=== PATIENT | female | born 1985 | race Caucasian/White ===

== ENCOUNTER → 2018-02-15 12:23 | Outpatient (CLI) | payer MEDICAID, SELFPAY ==
[2018-02-15 13:15] LABS: Absolute Lymphocyte Count 1.95 X10^3/ul (0.83-4.51); Absolute Neutrophil Count 5.7 X10^3/uL (2.0-7.7); Basophil# 0.03 X10^3/uL; Basophil% 0.4 % (0-1); Eosinophil# 0.06 X10^3/uL; Eosinophils% 0.7 % (0-5); Hematocrit 36.7 % (37-47); Hemoglobin 12.2 g/dl (12.0-15.0); Lymphocyte # 1.95 X10^3/ul (4.0); Lymphocyte % 23.8 % (19-41); Mean Corp Hgb Conc 33.2 g/gl (32-36); Mean Corpuscular Hgb 28.7 pg (27.0-32.0); Mean Corpuscular Volume 86.4 fL (81-99); Monocyte# 0.44 X10^3/uL; Monocyte% 5.4 % (0-10); Neutrophil # 5.68 X10^3/uL (2.7-7.7); Neutrophil % 69.5 % (47-70); Platelet Count 219 K/mm3 (150-450); RBC Distribution Width CV 13.2 % (11.6-14.6); RBC Distribution Width SD 40.9 fl (35.1-43.9); Red Blood Count 4.25 M/mm3 (4.2-5.4); White Blood Count 8.2 K/mm3 (4.4-11.0)
[2018-02-15 13:21] LABS: POSITIVE COUNT NO; POSITIVE DIFFERENTIAL NO; POSITIVE MORPHOLOGY NO
[2018-02-16 10:23] LABS: HEPATITIS B SURFACE AG Negative (Negative)
[2018-02-16 11:25] LABS: HIV - WCH Non-Reactive (Nonreactive); Rubella IgG 107.6 IU/mL
[2018-02-18 01:20] LABS: Rapid Plasmin Reagin (RPR) NONREACTIVE (NONREACTIVE)
== END ==
PROVIDERS: Visit Provider Nurse Practitioner Women's Health
DX: Z34.90 Encounter for supervision of normal pregnancy, unspecified, unspecified trimester (principal)
CPT/HCPCS: 36415; 85025; 86592; 86703; 86762; 86850; 86900; 87340

== ENCOUNTER → 2018-02-15 16:51 | Outpatient (CLI) | payer MEDICAID, SELFPAY ==
[2018-02-15 20:21] LABS: Chlamydia Trachomatis by PCR Negative (Negative); Neisserai gonorrhoeae by PCR Negative (Negative); Probe Check PASS; Sample Adequacy Control PASS; Specimen Processing Control PASS
[2018-02-24 10:05] LABS: HPV APTIMA, High Risk Positive (Negative)
== END ==
PROVIDERS: Visit Provider Nurse Practitioner Women's Health
DX: Z34.90 Encounter for supervision of normal pregnancy, unspecified, unspecified trimester (principal); Z12.4 Encounter for screening for malignant neoplasm of cervix
CPT/HCPCS: 36415; 85025; 86592; 86703; 86762; 86850; 86900; 87086; 87088; 87340; 87491; 87591; 88175; G0145

== ENCOUNTER → 2018-02-22 12:14 | Outpatient (CLI) | payer MEDICAID, SELFPAY ==
--- NOTE | 2018-02-22 12:16 | US_ITS ---
STUDY: FIRST TRIMESTER OBSTETRICAL ULTRASOUND REASON FOR EXAM: Female, 32 years old. dating. LMP: December 22, 2017. TECHNIQUE: Transabdominal and Transvaginal PRIOR ULTRASOUND: None. FINDINGS: There is visualization of a single gestational sac in a normal intrauterine position. There is a visualized yolk sac. The yolk sac measures 5 mm.. The placenta is non-visualized. There is visualization of a live embryo. The crown-rump length (CRL) measures 1.79 cm, indicating an estimated gestational age (EGA) of 8 weeks, 2 days. There is demonstrated cardiac activity with a heart rate of 146 bpm. The estimated gestation age (EGA) by LMP is 8 weeks, 6 days. The estimated date of delivery (ZULY) by LMP is September 28, 2018. The estimated gestation age (EGA) by US is 8 weeks, 2 days. The estimated date of delivery (ZULY) by US is October 02, 2018. The uterus measures 13.9 cm x 8.0 cm x 6.4 cm.. There is no demonstrated uterine fibroid. The cervix is closed. There is a 9 mm x 8 mm x 4 mm subchorionic bleed. The right ovary measures 4.2 cm x 4.6 cm x 2.4 cm. There is no right ovarian cyst. There is no visualized right adnexal mass or complex lesion. The left ovary measures 4.0 cm x 3.5 cm x 2.0 cm. There is no left ovarian cyst. There is no visualized left adnexal mass or complex lesion. There is no fluid in the cul de sac. US/Init OB < 14Wks US IMPRESSION: Single live intrauterine gestation with a mean gestational age of 8 weeks and 2 days. Subcentimeter subchorionic bleed. Electronically Signed: Kishore Hayes MD at 14:43 EDT Tel [phone], Service support ,
== END ==
PROVIDERS: Visit Provider Nurse Practitioner Women's Health
DX: Z34.90 Encounter for supervision of normal pregnancy, unspecified, unspecified trimester (principal); Z98.891 History of uterine scar from previous surgery
CPT/HCPCS: 76801

== ENCOUNTER → 2018-05-12 13:01 | Outpatient (CLI) | payer MEDICAID, SELFPAY ==
--- NOTE | 2018-05-12 13:05 | US_ITS ---
STUDY: SECOND AND THIRD TRIMESTER OBSTETRICAL ULTRASOUND REASON FOR EXAM: Female, 33 years old. Anatomy LMP: TECHNIQUE: Transabdominal and Transvaginal PRIOR ULTRASOUND: February 22, 2018 FINDINGS: There is a single intrauterine fetus. The fetus is in a cephalic presentation. There is demonstrated cardiac activity with a heart rate of 142 bpm. There is a normal amniotic fluid volume. The largest amniotic fluid pocket measures 6.2 cm. The placenta is posterior in location and is not low lying. There are Grade 0 placental changes. The cervix measures 40 mm in length. The bilateral adnexal regions are normal. BIOMETRY: BPD: 45mm: 19 weeks, 5 days HC: 171mm: 19 weeks, 6 days AC: 162mm: 21 weeks, 2 days FL: 32mm: 20 weeks, 1 days CI: 73 FL/BPD: 72 FL/AC: 20 HC/AC: 1.06 age by current US: 20 weeks, 2 days. ZULY by current US: 1.1.19. Estimated weight: 363 grams, +/- 53 grams, 93 %. age by prior US: 19 weeks, 4 days. ZULY by prior US: 1.6.19. Age by LMP: 19 weeks, 4 days. ZULY by LMP: 1.6.19. ANATOMY: Gender: Male Cranium: Normal lateral ventricles. Normal choroid plexus. Normal cerebellum. Normal cisterna magna. The face, nose and lips are not visualized. Chest: Normal 4-chamber heart. Abdomen/Pelvis: Normal diaphragm. Normal stomach. Normal abdominal wall. Normal cord insertion. Normal 3 vessel cord. Normal kidneys. Normal bladder. Spine: Normal cervical spine. Normal thoracic spine. Normal lumbar spine. Normal sacrum. Extremities: Normal bilateral upper extremities. Normal bilateral lower extremities. US/OB Anatomy Scan IMPRESSION: There is a single live intrauterine with a heart rate of 142 bpm. age by current US: 20 weeks, 2 days. ZULY by current US: 1.1.19. The face, nose and lips are not visualized. Electronically Signed: Antonio Min MD at 22:45 EDT , Service support ,
== END ==
PROVIDERS: Visit Provider Obstetrics & Gynecology
DX: Z34.90 Encounter for supervision of normal pregnancy, unspecified, unspecified trimester (principal)
CPT/HCPCS: 76805

== ENCOUNTER → 2018-07-13 11:32 | Outpatient (CLI) | payer MEDICAID, SELFPAY ==
[2018-07-13 12:19] LABS: Absolute Lymphocyte Count 1.41 X10^3/ul (0.83-4.51); Absolute Neutrophil Count 5.8 X10^3/uL (2.0-7.7); Basophil# 0.01 X10^3/uL; Basophil% 0.1 % (0-1); Eosinophil# 0.05 X10^3/uL; Eosinophils% 0.7 % (0-5); Hematocrit 32.8 % (37-47); Hemoglobin 10.7 g/dl (12.0-15.0); Lymphocyte # 1.41 X10^3/ul (4.0); Lymphocyte % 18.5 % (19-41); Mean Corp Hgb Conc 32.6 g/gl (32-36); Mean Corpuscular Hgb 29.6 pg (27.0-32.0); Mean Corpuscular Volume 90.9 fL (81-99); Mean Platelet Vol. 9.9 fl (6.2-12.0); Monocyte# 0.31 X10^3/uL; Monocyte% 4.1 % (0-10); Neutrophil % 76.1 % (47-70); Platelet Count 200 K/mm3 (150-450); RBC Distribution Width CV 12.9 % (11.6-14.6); RBC Distribution Width SD 41.4 fl (35.1-43.9); Red Blood Count 3.61 M/mm3 (4.2-5.4); White Blood Count 7.6 K/mm3 (4.4-11.0)
[2018-07-13 12:23] LABS: POSITIVE COUNT NO; POSITIVE DIFFERENTIAL NO; POSITIVE MORPHOLOGY NO
[2018-07-13 12:49] LABS: Glucose Challenge Gest 1H 50g 144 mg/dL (70-140)
== END ==
PROVIDERS: Referring Provider Obstetrics & Gynecology; Visit Provider Obstetrics & Gynecology
DX: O09.899 Supervision of other high risk pregnancies, unspecified trimester (principal); O09.91 Supervision of high risk pregnancy, unspecified, first trimester; Z67.91 Unspecified blood type, Rh negative
CPT/HCPCS: 36415; 82950; 85025; 86850; 86900

== ENCOUNTER → 2018-07-19 09:59 | Outpatient (CLI) | payer MEDICAID, SELFPAY ==
[2018-07-19 10:51] LABS: Glucose GTT-Gestation. Fasting 83 mg/dL (<105)
[2018-07-19 11:41] LABS: Glucose GTT-Gestational 1 Hr 141 mg/dL (<190)
[2018-07-19 12:55] LABS: Glucose GTT-Gestational 2 Hr 95 mg/dL (<165)
[2018-07-19 14:22] LABS: Glucose GTT-Gestational 3 Hr 85 L (<145)
== END ==
PROVIDERS: Referring Provider Nurse Practitioner Women's Health; Visit Provider Nurse Practitioner Women's Health
DX: O99.810 Abnormal glucose complicating pregnancy (principal); Z3A.00 Weeks of gestation of pregnancy not specified
CPT/HCPCS: 36415; 82951; 82952

== ENCOUNTER → 2018-09-06 12:10 | Outpatient (CLI) | payer MEDICAID, SELFPAY ==
[2018-09-06 11:23] VITALS: BMI 36.3
[2018-09-06 13:02] LABS: Absolute Lymphocyte Count 1.37 X10^3/ul (0.83-4.51); Absolute Neutrophil Count 4.4 X10^3/uL (2.0-7.7); Basophil# 0.02 X10^3/uL; Basophil% 0.3 % (0-1); Eosinophil# 0.08 X10^3/uL; Eosinophils% 1.3 % (0-5); Hematocrit 30.5 % (37-47); Lymphocyte # 1.37 X10^3/ul (4.0); Lymphocyte % 21.7 % (19-41); Mean Corp Hgb Conc 32.8 g/gl (32-36); Mean Corpuscular Hgb 28.9 pg (27.0-32.0); Mean Corpuscular Volume 88.2 fL (81-99); Mean Platelet Vol. 9.9 fl (6.2-12.0); Monocyte# 0.45 X10^3/uL; Monocyte% 7.1 % (0-10); Neutrophil # 4.35 X10^3/uL (2.7-7.7); Neutrophil % 69.1 % (47-70); Platelet Count 186 K/mm3 (150-450); RBC Distribution Width CV 13.7 % (11.6-14.6); RBC Distribution Width SD 41.5 fl (35.1-43.9); Red Blood Count 3.46 M/mm3 (4.2-5.4); White Blood Count 6.3 K/mm3 (4.4-11.0)
[2018-09-06 13:05] LABS: POSITIVE COUNT NO; POSITIVE DIFFERENTIAL NO; POSITIVE MORPHOLOGY NO
--- OUTSIDE RECORDS SUMMARY | 2018-10-23 14:20 | XMS RPT_ITS ---
:1985 Author Organization OHIP Support Name Relationship Address Phone KELTON PEARSON Unavailable [address] + [address] [place] [address] UE Unavailable Unavailable Unavailable PEARSON, KELTON Unavailable [address] + [address] [place] [address] UE Unavailable Unavailable Unavailable PEARSON, KELTON Unavailable [address] + [address] [place] [address] UE Unavailable Unavailable Unavailable PEARSON, KELTON Unavailable [address] + [address] [place] [address] UE Unavailable Unavailable Unavailable PEARSON, KELTON Unavailable [address] + [address] [place] [address] UE Unavailable Unavailable Unavailable PEARSON, KELTON Unavailable [address] + [address] [place] [address] UE Unavailable Unavailable Unavailable PEARSON, KELTON Unavailable [address] + [address] [place] [address] UE Unavailable Unavailable Unavailable PEARSON, KELTON Unavailable [address] + [address] [place] [address] UE Unavailable Unavailable Unavailable PEARSON, KELTON Unavailable [address] + [address] [place] [address] UE Unavailable Unavailable Unavailable PEARSON, KELTON Unavailable [address] + [address] [facility] [place] [address] UE Unavailable Unavailable Unavailable PEARSON, KELTON Unavailable [address] + [address] [place] [address] UE Unavailable Unavailable Unavailable PEARSON, KELTON Unavailable [address] + [address] [place] [address] UE Unavailable Unavailable Unavailable PEARSON KELTON Unavailable [address] + [address] [place] [address] UE Unavailable Unavailable Unavailable PEARSON KELTON Unavailable [address] + [address] [place] [address] UE Unavailable Unavailable Unavailable PEARSON KELTON Unavailable [address] + [address] [place] [address] UE Unavailable Unavailable Unavailable PEARSON KELTON Unavailable [address] + [address] [place] [address] UE Unavailable Unavailable Unavailable NOT GIVEN Unavailable Unavailable Unavailable HERMAN MEJIA Unavailable [address] + [address] [place], [place] [id number] HERMAN MEJIA Unavailable [address] [place], [place] [id number] PEARSON KELTON Unavailable [address] + [address] [place] [address] UE Unavailable Unavailable Unavailable PEARSON KELTON Unavailable [address] + [address] [place] [address] UE Unavailable Unavailable Unavailable PEARSON KELTON Unavailable [address] + [address] [place] [address] UE Unavailable Unavailable Unavailable PEARSON KELTON Unavailable [address] + [address] [place] [address] UE Unavailable Unavailable Unavailable PEARSON KELTON Unavailable [address] + [address] [place] [address] UE Unavailable Unavailable Unavailable . Unavailable Unavailable + [place] [address] PEARSON KELTON Unavailable . + [place] [address] Care Team Providers Name Role Phone DEEPAK, DR ALICE France Admitting Unavailable DEEPAK, DR ALICE France Attending Unavailable DEEPAK, DR ALICE France Primary Care Unavailable MYA KAPADIA MD Referring Unavailable MYA KAPADIA MD Consulting Unavailable PROVIDER, UNKNOWN Consulting Unavailable Mya Kapadia Attending Unavailable Primay Care Physicia, No Referring Unavailable Mya Kapadia Attending Unavailable Mya Kapadia Referring Unavailable Primay Care Physicia, No Primary Care Unavailable Marcanthony, Mya Attending Unavailable Marcanthony, Mya Referring Unavailable Primay Care Physicia, No Primary Care Unavailable Marcanthony, Mya Admitting Unavailable Marcanthony, Mya Attending Unavailable Marcanthony, Mya Referring Unavailable Primay Care Physicia, No Primary Care Unavailable Drew, Patsy Attending Unavailable Drew, Patsy Attending Unavailable Drew, Patsy Referring Unavailable Primay Care Physicia, No Primary Care Unavailable Drew, Patsy Attending Unavailable Primay Care Physicia, No Primary Care Unavailable Drew, Patsy Referring Unavailable Marcanthony, Mya Attending Unavailable Primay Care Physicia, No Referring Unavailable Marcanthony, Mya Attending Unavailable Primay Care Physicia, No Referring Unavailable Marcanthony, Mya Admitting Unavailable Marcanthony, Mya Attending Unavailable Marcanthony, Mya Referring Unavailable Primay Care Physicia, No Primary Care Unavailable Marcanthony, Mya Consulting Unavailable Marcanthony, Mya Admitting Unavailable Marcanthony, Mya Attending Unavailable Marcanthony, Mya Referring Unavailable Primay Care Physicia, No Primary Care Unavailable Marcanthony, Mya Consulting Unavailable Marcanthony, Mya Admitting Unavailable Drew, Patsy Attending Unavailable Marcanthony, Mya Referring Unavailable Primay Care Physicia, No Primary Care Unavailable Marcanthony, Mya Consulting Unavailable Drew, Patsy Attending Unavailable [place], Patsy Referring Unavailable Primay Care Physicia, No Primary Care Unavailable Drew, Patsy Attending Unavailable Primay Care Physicia, No Referring Unavailable Primay Care Physicia, No Attending Unavailable Marcanthony, Mya Attending Unavailable Primay Care Physicia, No Referring Unavailable Marcanthony, Mya Attending Unavailable Marcanthony, Mya Attending Unavailable Primay Care Physicia, No Primary Care Unavailable Marcanthony, Mya Attending Unavailable Primay Care Physicia, No Referring Unavailable Marcanthony, Mya Attending Unavailable Marcanthony, Mya Referring Unavailable Primay Care Physicia, No Primary Care Unavailable [place], Patsy Attending Unavailable Drew, Patsy Referring Unavailable Primay Care Physicia, No Primary Care Unavailable Drew, Patsy Attending Unavailable Primay Care Physicia, No Referring Unavailable PROBLEMS PROBLEMS DATE TYPE CONDITION / CODE ATTENDING STATUS SOURCE 09/28/2018 Unknown G89.18 - Other acute Marcanthony, Active [place] postprocedural pain [facility] / 89.18(ICD-10) Hospital Repository 09/22/2018 Unknown O09.899 - Marcanthony, Active [place] Supervision of other [facility] high risk Hospital pregnancies, Repository unspecified trimester / O09.899(ICD-10) 09/22/2018 Unknown Z67.91 - Unspecified Marcanthony, Active [place] blood type, Rh [facility] negative / Hospital Z67.91(ICD-10) Repository 09/22/2018 Unknown Z87.51 - Personal Marcanthony, Active [place] history of pre-term [facility] labor / Hospital Z87.51(ICD-10) Repository 09/22/2018 Unknown Z98.891 - History of Marcanthony, Active [place] uterine scar from [facility] previous surgery / Hospital Z98.891(ICD-10) Repository 09/22/2018 Unknown R87.610 - Atypical Marcanthony, Active [place] squamous cells of [facility] undetermined Hospital significance on Repository cytologic smear of cervix (ASC-US) / R87.610(ICD-10) 09/22/2018 Unknown R87.810 - Cervical Marcanthony, Active [place] high risk human [facility] papillomavirus (HPV) Hospital DNA test positive / Repository R87.810(ICD-10) 09/22/2018 Unknown O09.91 - Supervision Marcanthony, Active [place] of high risk [facility] , Hospital unspecified, first Repository trimester / O09.91(ICD-10) 09/22/2018 Unknown O99.012 - Anemia Marcanthony, Active [place] complicating [facility] , second Hospital trimester / Repository O99.012(ICD-10) 09/22/2018 Unknown O99.810 - Abnormal Marcanthony, Active [place] glucose complicating [facility] / Hospital O99.810(ICD-10) Repository 09/22/2018 Unknown Z36.9 - Encounter Marcanthony, Active [place] for [facility] screening, Hospital unspecified / Repository Z36.9(ICD-10) 09/06/2018 Unknown Z34.90 - Encounter Marcanthony, Active [place] for supervision of [facility] normal , Hospital unspecified, Repository unspecified trimester / Z34.90(ICD-10) 09/06/2018 Unknown O36.5990 - Maternal Marcsascha, Active [place] care for other known [facility] or suspected poor Hospital growth, Repository unspecified trimester, not applicable or unspecified / O36.5990(ICD-10) 07/27/2018 Unknown Z3A.30 - 30 weeks DrewPatsy murry Active [place] gestation of [facility] / Hospital Z3A.30(ICD-10) Repository 07/13/2018 Unknown Z23 - Encounter for Rika, Active [place] immunization / [facility] Z23(ICD-10) Hospital Repository 03/25/2018 Unknown Z3A.12 - 12 weeks Drew, Patsy Active [place] gestation of [facility] / Hospital Z3A.12(ICD-10) Repository 03/25/2018 Unknown O21.9 - Vomiting of Drew, Patsy Active [place] , Community unspecified / Hospital O21.9(ICD-10) Repository 02/16/2018 Unknown Z12.4 - Encounter DrewPatsy Active [place] for screening for [facility] malignant neoplasm Hospital of cervix / Repository Z12.4(ICD-10) PROCEDURES PROCEDURES No Procedure Records FoundRESULTS RESULTS OPERATIVE REPORT Observed: 10/05/2018 Status: F Source: [place] 5:08 AM [facility] REPOSITORY [facility] Medical Records Department [address] [place] [address] Operative Report 09/26/18921 MR#: [id number] Acct: [id number] Name: ANKIT MEJIA Rep #: [id number] : 1985 33 From: Mya Kapadia MD PCP: Care Physician, No Primary Status: DIS IN Y Location: [id number] ADDENDUM by Mya Kapadia MD on 10/05/18 at 0508 Code Visit bilateral tubal ligationw as performed via the parkland method- mid interstitial portion of the tube was elevated and the tube transected tying proximally and distally and removing the communicating portion without ocmplications. 10/05/18 0508 <Electronically signed by Mya Kapadia MD> Date Mya Kapadia MD cc: No Primary Care Physician; Mya Kapadai MD * Signed Problem List (1) Anemia during in second trimester Status: Acute Comment: iron, check cbc monthly (2) Abnormal glucose affecting Status: Acute Comment: 3 hr GTT normal (3) Atypical squamous cell changes of undetermined significance (ASCUS) on cervical cytology with positive high risk human papilloma virus (HPV) Status: Acute Comment: pap PP (4) History of labor Status: Acute Comment: Progesterone injections in . (5) Supervision of high risk in first trimester Status: Acute Comment: PRR Grav 6/ ZULY 10/02/18. PC: Obey Todd Zofia, Vincent, Karolina. FOB: [place]. (is , getting ) Repeat US FU in 4 weeks due to body habitus. (6) screening encounter Status: Acute Comment: Referral to [facility] for NT (7) Rh negative state in antepartum period Status: Acute Comment: rhogam given at 28 weeks (8) History of Status: Acute Comment: Plans repeat CS with BTO 09/26/18 Report of Operation Date of Procedure: 09/26/18 Pre-Operative Diagnosis: previuos Post-Operative Diagnosis: same Surgery/Procedure Performed:: RLTCS BTL Description of Surgical Findings:: moderate scar tissue vesicouterine director private music therapy agency: Lorie Hartman Type of Anesthesia:: Spinal Special Medications: none Specimen's removed: male infant Drains: cuevas Estimated Blood Loss (mL): 600 Fluids Replaced: crystalloid Description of Procedure: The patient is a with 4 previous cesareans presented for repeat . Spinal anesthesia was placed without difficulty. Cuevas catheter was placed. The patient was placed in the dorsal supine position with leftward tilt. Patient was prepped and draped in the normal sterile fashion. Pfannenstiel skin incision was made with the scalpel and carried through to the underlying layer of fascia with the scalpel. Fascia was nicked in the midline and the incision extended laterally. The rectus bellies were dissected off superiorly and inferiorly with out complication both sharply and bluntly. The peritoneum was entered digitally. The incision was stretched and a low transverse uterine incision was made with the scalpel. The 's head was delivered atraumatically followed by the anterior and posterior shoulders without complication the rest of the delivered. The cord was clamped and cut and the was handed off to awaiting nurse. The placenta was delivered spontaneously immediately following and was noted to be intact and have a three-vessel cord. The uterus was exteriorized cleared of all clots and debris, and the incision was closed in a double layer closure using #1 Monocryl. The uterus was returned to the maternal abdomen and gutters were cleared of all clots and debris. The ovaries and fallopian tubes were noted to be within normal limits. The peritoneum was closed with 3-0 Monocryl in a running fashion. Fascia was closed with 0 PDS in a running fashion. Subcutaneous tissue was copiously irrigated and the skin was closed with 3-0 Monocryl in a subcuticular fashion. Steri-Strips and Mepilex dressing were applied without complication. Patient was taken to recovery in stable condition. Grafts/Implants Used: none - Complications none - Admit VTE Documentation VTE Present on Admission: No VTE Mechan Device Prophylaxis: SCD's 09/26/18 1142 <Electronically signed by Mya Kapadia MD> Date Mya Kapadia MD CC: No Primary Care Physician; Mya Kapadia MD Signed DISCHARGE INSTRUCTION Observed: 09/28/2018 Status: F Source: [place] 8:05 AM [facility] REPOSITORY [facility] Medical Records Department [address] [place] [address] Instructions for Home/Discharge Instructions 09/28/18 0804 MR#: [id number] Acct: [id number] Name: ANKIT MEJIA Rep #: [id number] : 1985 33 From: Patsy VIDAL PCP: Care Physician, No Primary Status: ADM IN Additional Instructions: If you experience any of the following, contact your healthcare provider. * Bleeding that soaks a pad every hour for 2 hours * Fever 100.4 or higher * Unrelieved incision or abdominal pain * Swelling, redness, discharge or bleeding from your incision or episiotomy site * Your incision begins to separate * Problems urinating (including inability to urinate or burning while urinating). * Visual changes * Severe headache * Flu-like symptoms * Pain or redness in one of both of your breasts * Pain, warmth, tenderness or swelling in your legs, especially the calf area * Frequent nausea and vomiting * Symptoms of depression or anxiety If you experience any of the following, call 911 or go to the nearest Emergency Room. * Chest pain * Problems breathing * Seizure activity * Partial or complete paralysis of a body part, slurred speech, weakness or drooping of the face, or a sudden inability to walk or hold your balance Allergies/Adverse Reactions: Allergies No Known Allergies Allergy (Verified 09/26/18 07:40) Medications to take at Discharge Ferrous Sulfate 325 mg PO QDAY 09/22/18 [id number] fum 28 mg iron-folate no.6 1 mg-dha 300 mg capsule 1 cap PO .daily 09/22/18 Naproxen [Naprosyn] 500 mg PO BID PRN PRN #60 tablet 09/28/18 Oxycodone HCl/Acetaminophen [Percocet 5/325] 1 - 2 tablet PO Q4H PRN PRN 3 Days #15 tablet 09/28/18 The following prescriptions were given: Oxycodone HCl/Acetaminophen [Percocet 5/325] 1 - 2 tablet PO Q4H PRN PRN 3 Days #15 tablet PRN Reason: Pain Naproxen [Naprosyn] 500 mg PO BID PRN PRN #60 tablet PRN Reason: Pain Follow-Up: Call to make an appointment with your doctor for an incision check in 1-2 weeks. You will also need a 6 week post- follow up appointment. Test results from this visit will be discussed in further detail at your follow-up appointment, if applicable. Primary Care Physician: Care Physician,No Primary [Primary Care Provider] - 09/28/18804 <Electronically signed by Patsy VIDAL> Date Patsy VIDAL CC: No Primary Care Physician Signed CBC-COMPLETE BLOOD CNT Collected: 09/27/2018 Status: F Source: [place] NO DIFF 7:45 AM [facility] REPOSIT[facility] Order Comment: Comments: Day #1 Reason for Laboratory Test TYPE CODE TESTS RESULT OUT OF RANGE REFERENCE UNITS LAB L100.1000 4.4-11.0 K/mm3 Normal WBC 6.5 LAB L100.1200 4.2-5.4 M/mm3 Low RBC 3.15 LAB L100.1300 12.0-15.0 g/dl Low HGB 8.7 LAB L100.1400 37-47 % Low HCT 27.3 LAB L100.1500 81-99 fL Normal MCV 86.7 LAB L100.1600 27.0-32.0 pg Normal MCH 27.6 LAB L100.1700 32-36 g/gl Low MCHC 31.9 LAB L100.1810 11.6-14.6 % Normal RDW CV 14.0 LAB L100.1820 35.1-43.9 fl Normal RDW SD 43.5 LAB L100.1900 150-450 K/mm3 Normal PLT 178 LAB L100.2000 6.2-12.0 fl Normal MPV 9.2 Performed By: #### L100.0500 #### [facility] [address] [facility] [place], [address] HISTORY AND PHYSICAL Observed: 09/26/2018 Status: F Source: [place] EXAM 9:21 AM [facility] REPOSITORY [facility] Medical Records Department [address] [place] [address] History and Physical 09/26/18 0918 MR#: [id number] Acct: [id number] Name: ANKIT MEJIA Khushi Rep #: [id number] : 1985 33 From: Mya Kapadia MD PCP: Care Physician, No Primary Status: ADM IN Y Location: [id number] - Problem List (1) Anemia during in second trimester Status: Acute Comment: iron, check cbc monthly (2) Abnormal glucose affecting Status: Acute Comment: 3 hr GTT normal (3) Atypical squamous cell changes of undetermined significance (ASCUS) on cervical cytology with positive high risk human papilloma virus (HPV) Status: Acute Comment: pap PP (4) History of labor Status: Acute Comment: Progesterone injections in . (5) Supervision of high risk in first trimester Status: Acute Comment: PRR Grav 6/5 ZULY 10/02/18. PC: Obey Todd, Yari, Tsering Nelson. FOB: [place]. (is , getting ) Repeat US FU in 4 weeks due to body habitus. (6) screening encounter Status: Acute Comment: Referral to [facility] for NT (7) Rh negative state in antepartum period Status: Acute Comment: rhogam given at 28 weeks (8) History of Status: Acute Comment: Plans repeat CS with BTO 09/26/18 History Date of Admission: 09/26/18 Final ZULY: 10/02/18 Gestational age: 39 Weeks and 1 Days History of this : This is a 33 year-old, at 39 weeks gestational age for repeat c section and BTL. Surgical History: Surgical History (Last Reviewed 09/22/18 @ 13:45 by Екатерина Barroso) S/P Z98.891 x4 S/P cholecystectomy Z90.49 Allergies No Known Allergies Allergy (Verified 09/26/18 07:40) Home Medications: Home Medications Ferrous Sulfate 325 mg PO QDAY 09/22/18 [id number] fum 28 mg iron-folate no.6 1 mg-dha 300 mg capsule 1 cap PO .daily 09/22/18 Smoking Status: Never smoker Alcohol: None Number of Fetus(es): 1 Heart Tracin History Past Pregnancies: Past PregnanciesPregancy History 6 Elective abortions Hx Para 5 Spontaneous abortions Past Pregnancies Del. DateName GA/Weeks Outcome Route Bth WeighInfant GeLabor LgtAnesthesiDel LocatProvider FOB t n h a n Labs: Mom's Labs AND Results WBC 8.0 RBC 3.92 L Course Did the patient receive Yes care? Labs Blood Type: O Current Obstetrical History Gestational Diabetes No Incompetent Cervix No Infertility No IUGR No Macrosomia No Hypertension/Pre-eclampsia No Placenta Previa/Abruption No PTL/PROM No Uterine anomaly No Oligohydramnios No Polyhydramnios No Multiple gestation No Past Medical History Asthma No Diabetes No Hypertension No Heart disease No Mitral valve prolapse No Neurologic/Seizure disorder/ No Migraines Kidney disease No Liver disease No Varicosities No Clotting disorders/Hx of DVT No Thyroid Dysfunction No Other medical diseases No Psychiatric disorders No Major trauma No Abnormal PAP smear No Sleep apnea No Mammogram in the last 2 years No Social History Marital Status: Alleged father [place] pearson Hx Smoking No Smoking Status Never smoker Expected Delivery Method: Scheduled Section, Repeat Section Describe any other labor AND delivery plans:: btl Review of Systems Constitutional: Denies: Fever, Malaise Eyes: Denies: Blurred vision, Vision Change HEENT: Denies: Head Aches, Visual Changes Cardiovascular: Denies: Chest Pain, Palpitations Respiratory: Denies: Cough, Shortness of Breath, Wheezing Gastrointestinal: Denies: Abdominal Pain, Diarrhea, Nausea, Vomiting Genitourinary: Denies: Dysuria, Hematuria Musculoskeletal: Denies: Joint Pain, Muscle pain Skin: Denies: Lesions, Rash Neurological: Denies: Blurred vision, Focal weakness, Headaches Psychiatric: Denies: Anxiety, Depression Endocrine: Denies: Heat/ Cold Intolerance Hematologic/ Lymphatic: Denies: Easy Bruising, Easy Bleeding Physical Exam Vitals: Vital Signs Temp Pulse Resp BP Pulse Ox 97.0 F L 87 16 117/75 97 09/26/18 08:50 09/26/18 09:08 09/26/18 09:08 09/26/18 09:08 09/26/18 09:08 General: Alert, Cooperative, No apparent distress HEENT: Atraumatic, Normocephalic. Negative for: Thyromegaly, Lymphadenopathy Cardiovascular: Regular rate Lungs: Normal air movement Abdomen: Soft, Non Tender, Gravid Neurological: Deep Tendon Reflexes 2+/4 and Symmetrical, Neuro grossly intact. Negative for: Clonus [employer]: Normal external genitalia. Negative for: Vulvar lesions Estimated gestational size: Appropriate for gestational size Presentation: Cephalic Assessment/Plan All Active Problems (Last Reviewed 09/22/18 @ 13:45 by Екатерина Barroso) Anemia during in second trimester (Acute) Abnormal glucose affecting (Acute) Atypical squamous cell changes of undetermined significance (ASCUS) on cervical cytology with positive high risk human papilloma virus (HPV) (Acute) History of labor (Acute) Supervision of high risk in first trimester (Acute) screening encounter (Acute) Rh negative state in antepartum period (Acute) History of (Acute) This is a 33 year-old, at 39 weeks gestational age. plant RLTCS and BTL rhogam PRN 09/26/18 0921 <Electronically signed by Mya Kapadia MD> Date Mya Kapadia MD Cosigner Signature: Date (if applicable) CC: No Primary Care Physician; Mya Kapadia MD Signed FALLOPIAN TUBES/STERILIZATION Observed: 09/26/2018 Status: F Source: [place] 7:54 AM [facility] REPOSIT[facility] Patient: ANKIT MEJIA : 1985 (33/F) Acct Num: [id number] Phys: Mya Kapadia MD Unit Num: [id number] Loc: WP [id number] Specimen: [id number] Received: 09/26/18 - 1008 Spec Type: FALL TUBES TISSUES 1 TISSUES: Fallopian tube GROSS DESCRIPTION Received is one container labeled with the patient's name and designated bilateral fallopian tubes, left with suture. The specimen consists of two fallopian tubes with an average length of 3.5 cm and has an average diameter of 0.6 cm. Both fallopian tubes have normal fimbriated ends. No mass lesions are identified. The fallopian tubes are totally submitted in two cassettes as follows: 1 - right fallopian tube, 2 - left fallopian tube. / AM:ida 09/26/18 TC:4 CPT: 40977 x2 HEADER OPERATION: Tubal ligation PRE-OP DIAGNOSIS: Desired sterilization TISSUE SUBMITTED: Fallopian tube, stitch in left tube MICROSCOPIC DESCRIPTION Slides are reviewed. MICROSCOPIC DIAGNOSIS Right and left fallopian tubes, bilateral salpingectomies: Two complete segments of fallopian tubes with no pathologic change. AM:ida 09/28/18 Signed Abdoul Bundy, 09/29/18 <signature on file> Performed By: #### PFALS #### [facility] [address] [place], [place], [address] PATHOLOGY SPECIMEN OB Collected: 09/26/2018 Status: F Source: [place] 7:54 AM [facility] REPOSIT[facility] Order Comment: Comments: STITCH IN LEFT TUBE Send Specimen For (Specify): Studies @ [facility] Lab:Routine Time of Procedure: 753 Date of Procedure: 09/26/18 Reason specimen being sent to pathology (Hx/complications): STUDIES @ [facility] LAB Type of specimen: Fallopian Tube Type of procedure performed: Tubal Ligation TYPE CODE TESTS RESULT OUT OF RANGE REFERENCE UNITS LAB L350.1800 SEE Normal PATH. PATHOLOGY Spec. OB REPORT Result Comment: Specimen submitted to Anatomical Pathology Department for testing. Performed By: #### L350.1800 #### [facility] [address] [place], [place], [id number] CBC-COMPLETE BLOOD CNT Collected: 09/26/2018 Status: F Source: [place] NO DIFF 6:20 AM [facility] REPOSIT[facility] TYPE CODE TESTS RESULT OUT OF RANGE REFERENCE UNITS LAB L100.1000 4.4-11.0 K/mm3 Normal WBC 8.0 LAB L100.1200 4.2-5.4 M/mm3 Low RBC 3.92 LAB L100.1300 12.0-15.0 g/dl Low HGB 11.0 LAB L100.1400 37-47 % Low HCT 34.3 LAB L100.1500 81-99 fL Normal MCV 87.5 LAB L100.1600 27.0-32.0 pg Normal MCH 28.1 LAB L100.1700 32-36 g/gl Normal MCHC 32.1 LAB L100.1810 11.6-14.6 % Normal RDW CV 13.9 LAB L100.1820 35.1-43.9 fl Normal RDW SD 42.2 LAB L100.1900 150-450 K/mm3 Normal PLT 222 LAB L100.2000 6.2-12.0 fl Normal MPV 9.7 Performed By: #### L100.0500 #### [facility] [address] [place], [place], [id number] TYPE AND SCREEN Collected: 09/26/2018 Status: F Source: [facility] 6:20 AM [facility] REPOSIT[facility] Order Comment: Reason for Type AND Screen/Red Cells: SURGERY Surgery Date: 09/26/18 Time: 0900 Other - use comments: . Type of Surgery: OTHER TYPE CODE TESTS RESULT OUT OF RANGE REFERENCE UNITS LAB B10.0800 O Normal BLOOD TYPE GEL NEGATIVE LAB B100.4000 Normal Antibody NEGATIVE Screen Performed By: #### B101.7450 #### [facility] [address] [place], [address] MONORAIL CRANE OPERATOR OFFICE VISIT Observed: 09/22/2018 Status: F Source: [facility] REPORT 2:22 PM [facility] REPOSIT[facility] [address] [place] [address] OFFICE VISIT Date of Service: 09/22/18 MR#: [id number] Acct: [id number] Name: ANKIT MEJIA Rep #: [id number] : 1985 Provider: Mya Kapadia MD Age/Sex: 33/F Location: [facility] Status: Signed Intake Vital Signs09/22/18 Body Mass Index (BMI) 36.3 09/22/18 Height 5 ft 3 in 09/22/18 Weight: 202 lb 4 oz 09/22/18 Body Mass Index (BMI) 35.8 09/22/18 Blood Pressure 122/82 H Intake Visit Reasons: est ob 38w Manager Environmental Services Required: No Is patient in pain?: Yes Allergies No Known Allergies Allergy (Verified 09/22/18 13:45) Medications [id number] fum 28 mg iron-folate no.6 1 mg-dha 300 mg capsule 1 cap PO .daily #90 cap 02/15/18 [Rx Confirmed 09/22/18] ferrous sulfate 325 mg (65 mg iron) tablet,delayed release 325 mg PO QDAY #90 tab 07/27/18 [Rx Confirmed 09/22/18] Last Menstral Period: 12/22/17 Zika: Zika virus screening: Negative : No Nurse's Note: Pt states she is having back pain PFSH PFSH Surgical History S/P (Resolved) S/P cholecystectomy (Resolved) Social History Smoking Status: Never smoker alcohol intake: never substance use type: does not use caffeine: Yes what type of physical activity do you participate in: walking frequency: 5-6 times per week seatbelt use: always do you feel safe at home: Yes additional social history: () Patient is not working Pregancy History 6 Elective abortions Hx Para 5 Spontaneous abortions Past Pregnancies Del. DateName GA/Weeks Outcome Route Bth WeighInfant GeLabor LgtAnesthesiDel LocatProvider FOB t n h a n HPI est ob 38w: Details: ANKIT MEJIA is a 33 year old who presents for routine OB visit. OB Visit ZULY Calculator Estimated Delivery Date 10/02/18 Based on Ultrasound Date 02/22/18 Current WG 38w 4d Number 1 Expected Delivery Route/Plan R CS and BTO Specific Issue/Plans flu vaccine: declines tdap vaccine: given rhogam: given LARC form signed: plans BTO labor support person: Kelton pain management: R CS cut cord/dad catch: [] : [] PP control planned: [] special requests: [] Initial Weight: 200 lb Date Weight BP Urine PFHR FuHt Pres MCTX DilatioFetal SVisit NProvideComment rot ov n t ote r s EGA Ef Gluco faced se 03/25/1202 lb 108/78 [id number] Nausea 8 6 oz (+ e problem 122 lb 6 atic. D w 5d oz) Negati oes not ve like t aste of promet hazine and inc reases vomitin g. No V b, LOF. Visit Notes Visit Date: 09/22/18 no vb lof good fm no egular ctx Mya Kapadia MD on 09/22/18 Visit Date: 09/13/18 no vb lof good fm no regular ctx get growth us for uterine size Mya Kapadia MD on 09/17/18 Visit Date: 09/06/18 patient has missed a few appointments and didn't have transportation. recommend growth us and cbc. Mya Kapadia MD on 09/06/18 Visit Date: 07/27/18 Doing well. denies VB, LOF YOUNG Doll on 07/27/18 Visit Date: 07/13/18 no vb lof good fm n oreguar ctx schedule rltcs tl papers signed Mya Kapadia MD on 07/13/18 Visit Date: 04/15/18 no vb lof colp done today Mya Kapadia MD on 04/15/18 Visit Date: 03/25/18 Nausea problematic. Does not like taste of promethazine and increases vomiting. No Vb, LOF. YOUNG Doll on 03/25/18 Diagnostics Diagnostics Labs Blood Type O NEGATIVE 07/13/18 Antibody Screen NEGATIVE 07/13/18 Hct 30.5 % (37-47) L 09/06/18 Hgb 10.0 g/dl (12.0-15.0) L 09/06/18 Obstetrics Ultrasound 09/15/18 Glucose 1 Hr 50 gm 144 mg/dL (70-140) H 07/13/18 Group B Strep DNA Cancelled 09/06/18 Details: HIV: Urine Culture: Sequential Screen: NIPT Screen: ROS Const Denies fever(s) GI Denies abdominal pain, Reports as per HPI Denies vaginal discharge, Denies abnormal vaginal bleeding, Reports as per HPI Exam Const General: healthy appearing, comfortable, no acute distress GI Inspection: normal to inspection Palpation: soft, nontender Results [id number] Office Urine Glucose Negative Last Edit by Екатерина Barroso on 09/22/18 13:44 Office Urine Protein Negative Last Edit by Екатерина Barroso on 09/22/18 13:44 Assessment AND Plan Problems 1. Rh negative state in antepartum period O09.899; Z67.91 rhogam given at 28 weeks 2. History of labor Z87.51 Progesterone injections in . 3. History of delivery Z98.891 Plans repeat CS with BTO 09/26/18 4. Anemia during in second trimester O99.012 iron, check cbc monthly 5. Abnormal glucose affecting O99.810 3 hr GTT normal 6. screening encounter Z36.9 Referral to [facility] for NT 7. Atypical squamous cell changes of undetermined significance (ASCUS) on cervical cytology with positive high risk human papilloma virus (HPV) R87.610; R87.810 pap PP 8. Supervision of high risk in first trimester O09.91 PRR Grav 6/5 ZULY 10/02/18. PC: Obey Todd, Yari, Omar, Tsering. FOB: [place]. (is , getting ) Repeat US FU in 4 weeks due to body habitus. Plan movement and labor precautions reviewed. ACOG trimester education reviewed and updated. see problem list details for updated plan management information and see below for orders placed at this visit. GA appropriate handout given. Orders Orders: Coding Level of Care Code Off vis,est,level 3 Diagnoses Rh negative state in antepartum period O09.899; Z67.91 History of labor Z87.51 History of delivery Z98.891 Anemia during in second trimester O99.012 Abnormal glucose affecting O99.810 screening encounter Z36.9 Atypical squamous cell changes of undetermined significance (ASCUS) on cervical cytology with positive high risk human papilloma virus (HPV) R87.610; R87.810 Supervision of high risk in first trimester O09.91 09/22/18 1422 <Electronically signed by Mya Kapadia MD> Date Mya Kapadia MD Cosign Signature: Date (if applicable) CC: MONORAIL CRANE OPERATOR OFFICE VISIT Observed: 09/17/2018 Status: F Source: [facility] REPORT 3:22 AM [facility] REPOSIT[facility] [address] [place] [address]. [address] [place] [address] OFFICE VISIT Date of Service: 09/13/18 MR#: [id number] Acct: [id number] Name: ANKIT MEJIA Rep #: [id number] : 1985 Provider: Mya Kapadia MD Age/Sex: 33/F Location: [facility] Status: Signed Intake Vital Signs09/13/18 Height 5 ft 3 in 09/13/18 Weight: 203 lb 09/13/18 Body Mass Index (BMI) 35.9 09/13/18 Blood Pressure 118/76 Intake Visit Reasons: est ob 37w Chief Complaint: est ob Manager Environmental Services Required: No Is patient in pain?: No Allergies No Known Allergies Allergy (Verified 09/06/18 11:23) Medications [id number] fum 28 mg iron-folate no.6 1 mg-dha 300 mg capsule 1 cap PO .daily #90 cap 02/15/18 [Rx Confirmed 09/13/18] ferrous sulfate 325 mg (65 mg iron) tablet,delayed release 325 mg PO QDAY #90 tab 07/27/18 [Rx Confirmed 09/13/18] Last Menstral Period: 12/22/17 Zika: Zika virus screening: Negative : No PFSH PFSH Surgical History S/P (Resolved) S/P cholecystectomy (Resolved) Social History Smoking Status: Never smoker alcohol intake: never substance use type: does not use caffeine: Yes what type of physical activity do you participate in: walking frequency: 5-6 times per week seatbelt use: always do you feel safe at home: Yes additional social history: () Patient is not working Pregancy History 6 Elective abortions Hx Para 5 Spontaneous abortions Past Pregnancies Del. DateName GA/Weeks Outcome Route Bth WeighInfant GeLabor LgtAnesthesiDel LocatProvider FOB t n h a n HPI est ob 37w: Details: ANKIT MEJIA is a 33 year old who presents for routine OB visit. OB Visit ZULY Calculator Estimated Delivery Date 10/02/18 Based on Ultrasound Date 02/22/18 Current WG 37w 6d Number 1 Expected Delivery Route/Plan R CS and BTO Specific Issue/Plans flu vaccine: declines tdap vaccine: given rhogam: given LARC form signed: plans BTO labor support person: Kelton pain management: R CS cut cord/dad catch: [] : [] PP control planned: [] special requests: [] Initial Weight: 200 lb Date Weight BP Urine PFHR FuHt Pres MCTX DilatioFetal SVisit NProvideComment rot ov n t ote r s EGA Ef Gluco faced se 03/25/1202 lb 108/78 [id number] Nausea 8 6 oz (+ e problem 122 lb 6 atic. D w 5d oz) Negati oes not ve like t aste of promet hazine and inc reases vomitin g. No V b, LOF. Visit Notes Visit Date: 09/13/18 no vb lof good fm no regular ctx get growth us for uterine size Mya Kapadia MD on 09/17/18 Visit Date: 09/06/18 patient has missed a few appointments and didn't have transportation. recommend growth us and cbc. Mya Kapadia MD on 09/06/18 Visit Date: 07/27/18 Doing well. denies VB, LOF YOUNG Doll on 07/27/18 Visit Date: 07/13/18 no vb lof good fm n oreguar ctx schedule rltcs tl papers signed Mya Kapadia MD on 07/13/18 Visit Date: 04/15/18 no vb lof colp done today Mya Kapadia MD on 04/15/18 Visit Date: 03/25/18 Nausea problematic. Does not like taste of promethazine and increases vomiting. No Vb, LOF. YOUNG Doll on 03/25/18 Diagnostics Diagnostics Labs Blood Type O NEGATIVE 07/13/18 Antibody Screen NEGATIVE 07/13/18 Hct 30.5 % (37-47) L 09/06/18 Hgb 10.0 g/dl (12.0-15.0) L 09/06/18 Obstetrics Ultrasound 09/15/18 Glucose 1 Hr 50 gm 144 mg/dL (70-140) H 07/13/18 Group B Strep DNA Cancelled 09/06/18 Details: HIV: Urine Culture: Sequential Screen: NIPT Screen: Results [id number] Office Urine Glucose Negative Last Edit by Helen Virgen on 09/13/18 10:35 Office Urine Protein Negative Last Edit by Helen Virgen on 09/13/18 10:35 Assessment AND Plan Problems 1. Rh negative state in antepartum period O09.899; Z67.91 rhogam given at 28 weeks 2. History of labor Z87.51 Progesterone injections in . 3. History of delivery Z98.891 Plans repeat CS with BTO 09/26/18 4. Anemia during in second trimester O99.012 iron, check cbc monthly 5. Abnormal glucose affecting O99.810 3 hr GTT normal 6. Atypical squamous cell changes of undetermined significance (ASCUS) on cervical cytology with positive high risk human papilloma virus (HPV) R87.610; R87.810 pap PP 7. Supervision of high risk in first trimester O09.91 PRR Grav 6/5 ZULY 10/02/18. PC: Obey Todd, Omar Greenberg Karolina. FOB: [place]. (is , getting ) Repeat US FU in 4 weeks due to body habitus. 8. screening encounter Z36.9 Referral to [facility] for NT Plan movement and labor precautions reviewed. ACOG trimester education reviewed and updated. see problem list details for updated plan management information and see below for orders placed at this visit. GA appropriate handout given. Orders Orders: Coding Level of Care Code Off vis,est,level 3 Diagnoses Rh negative state in antepartum period O09.899; Z67.91 History of labor Z87.51 History of delivery Z98.891 Anemia during in second trimester O99.012 Abnormal glucose affecting O99.810 Atypical squamous cell changes of undetermined significance (ASCUS) on cervical cytology with positive high risk human papilloma virus (HPV) R87.610; R87.810 Supervision of high risk in first trimester O09.91 screening encounter Z36.9 09/17/18 0322 <Electronically signed by Mya Kapadia MD> Date Mya Kapadia MD Cosigner Signature: Date (if applicable) CC: OB LIMITED WITH Observed: 09/15/2018 Status: F Source: [facility] 8:40 AM [facility] REPOSITORY [facility] Imaging Services [address] [place], [place] [address] [address] OB Limited With Biometrics MR#: [id number] Acct: [id number] Name: ANKIT MEJIA Rep #: [id number] : 1985 F 33 From: Kishore Hayes MD PCP: Care Physician, No Primary Status: REG CLI Study: OB Limited With Biometrics Date of Exam: 09/15/18 Exam# [id number] Ordering Dr: Mya Kapadia MD STUDY: SECOND AND THIRD TRIMESTER OBSTETRICAL ULTRASOUND - LIMITED REASON FOR EXAM: Female, 33 years old. Routine survey. LMP: December 26, 2017. PRIOR ULTRASOUND: Comparison is made with prior study dated May 12, 2018. TECHNIQUE: Transabdominal TECHNICAL QUALITY: Adequate. FINDINGS: There is a single intrauterine fetus. The fetus is in a cephalic presentation. There is demonstrated cardiac activity with a heart rate of 152 bpm. There is a normal amniotic fluid volume. The largest amniotic fluid pocket measures 5.1 cm x 5.6 cm. The amniotic fluid index (JOSE ANTONIO) is 13.3 cm. The placenta is fundal in location. There are Grade 3 placental changes. The cervix is not well visualized due to the position of the head. BIOMETRY: BPD: 8.81 cm: 35 weeks, 5 days HC: 32.47 cm: 36 weeks, 6 days AC: 36.11 cm: 4 weeks, 1 days FL: 7.32 cm: 37 weeks, 4 days Age by LMP: 37 weeks, 4 days. ZULY by LMP: October 02, 2018. age by prior US: 38 weeks, 2 days. ZULY by prior US: September 27, 2018. age by current US: 37 weeks, 4 days. ZULY by current US: Arnaud 2018. Estimated weight: 3515 grams, +/- 573 grams, 82 percentile. Gender: Male US/OB Limited With Biometrics IMPRESSION: Single live intrauterine gestation with a mean gestational age of 38 weeks and 2 days. The measurements obtained today following the normal expected range. The abdominal circumference is large. Electronically Signed: Kishore Hayes MD at 9:44 EST Tel [phone], Service support , CC: No Primary Care Physician; Mya Kapadia MD Electronics Mechanic Apprentice: Signed Observed: 09/06/2018 Status: F Source: [facility], GROUP B 1:54 PM [facility] STREPTOC[facility]CCUS REPOSITORY [place] Culture Group B Beta Streptococcus is not isolated. Performed By: #### M100.1800 #### [facility] [address] [place], [address] CBC W/DIFF, AUTOMATED Collected: 09/06/2018 Status: F Source: [facility] 12:13 PM [facility] REPOSIT[facility] TYPE CODE TESTS RESULT OUT OF RANGE REFERENCE UNITS LAB L100.1000 4.4-11.0 K/mm3 Normal WBC 6.3 LAB L100.1200 4.2-5.4 M/mm3 Low RBC 3.46 LAB L100.1300 12.0-15.0 g/dl Low HGB 10.0 LAB L100.1400 37-47 % Low HCT 30.5 LAB L100.1500 81-99 fL Normal MCV 88.2 LAB L100.1600 27.0-32.0 pg Normal MCH 28.9 LAB L100.1700 32-36 g/gl Normal MCHC 32.8 LAB L100.1810 11.6-14.6 % Normal RDW CV 13.7 LAB L100.1820 35.1-43.9 fl Normal RDW SD 41.5 LAB L100.1900 150-450 K/mm3 Normal PLT 186 LAB L100.2000 6.2-12.0 fl Normal MPV 9.9 LAB L100.2100 47-70 % Normal NEUT% 69.1 LAB L100.2200 19-41 % Normal LY% 21.7 LAB L100.2300 0-10 % Normal MONO% 7.1 LAB L100.2400 0-5 % Normal EO% 1.3 LAB L100.2500 0-1 % Normal BASO% 0.3 LAB L100.2550 0.0-0.9 % Normal IM GRAN % 0.500 Result Comment: IG% - Immature Granulocytes (promyelocytes, myelocytes and metamyelocytes) > 1% indicates that a LEFT SHIFT is Present. LAB L100.2620 2.0-7.7 X10 3/uL Normal Absolute Neut 4.4 LAB L100.2720 0.83-4.51 X10 3/ul Normal Absolute Lymph 1.37 Performed By: #### L100.0100 #### [facility] [address] [place], [address] MONORAIL CRANE OPERATOR OFFICE VISIT Observed: 09/06/2018 Status: F Source: [facility] RE[facility] 11:54 AM [facility] REPOSIT[facility] [address] [place] [address] OFFICE VISIT Date of Service: 09/06/18 MR#: [id number] Acct: [id number] Name: ANKIT MEJIA Rep #: [id number] : 1985 Provider: Mya Kapadia MD Age/Sex: 33/F Location: [facility] Status: Signed Intake Vital Signs09/06/18 Height 5 ft 3 in 09/06/18 Weight: 205 lb 09/06/18 Body Mass Index (BMI) 36.3 09/06/18 Blood Pressure 140/84 H Intake Visit Reasons: est ob 36w Chief Complaint: est ob Manager Environmental Services Required: No Is patient in pain?: No Allergies No Known Allergies Allergy (Verified 09/06/18 11:23) Medications [id number] fum 28 mg iron-folate no.6 1 mg-dha 300 mg capsule 1 cap PO .daily #90 cap 02/15/18 [Rx Confirmed 09/06/18] ferrous sulfate 325 mg (65 mg iron) tablet,delayed release 325 mg PO QDAY #90 tab 07/27/18 [Rx Confirmed 09/06/18] Last Menstral Period: 12/22/17 Zika: Zika virus screening: Negative : No PFSH PFSH Surgical History S/P (Resolved) S/P cholecystectomy (Resolved) Social History Smoking Status: Never smoker alcohol intake: never substance use type: does not use caffeine: Yes what type of physical activity do you participate in: walking frequency: 5-6 times per week seatbelt use: always do you feel safe at home: Yes additional social history: () Patient is not working Pregancy History 6 Elective abortions Hx Para 5 Spontaneous abortions Past Pregnancies Del. DateName GA/Weeks Outcome Route Bth WeighInfant GeLabor LgtAnesthesiDel LocatProvider FOB t n h a n HPI est ob 36w: Details: ANKIT MEJIA is a 33 year old who presents for routine OB visit. OB Visit ZULY Calculator Estimated Delivery Date 10/02/18 Based on Ultrasound Date 02/22/18 Current WG 36w 2d Number 1 Expected Delivery Route/Plan R CS and BTO Specific Issue/Plans flu vaccine: declines tdap vaccine: given rhogam: given LARC form signed: plans BTO labor support person: Kelton pain management: R CS cut cord/dad catch: [] : [] PP control planned: [] special requests: [] Initial Weight: 200 lb Date Weight BP Urine PrFHR FuHt Pres MoCTX DilationFetal StVisit NoProviderComments E ot v te GA G Effac lucose ed Visit Notes Visit Date: 09/06/18 patient has missed a few appointments and didn't have transportation. recommend growth us and cbc. Mya Kapadia MD on 09/06/18 Visit Date: 07/27/18 Doing well. denies VB, LOF YOUNG Doll on 07/27/18 Visit Date: 07/13/18 no vb lof good fm n oreguar ctx schedule rltcs tl papers signed Mya Kapadia MD on 07/13/18 Visit Date: 04/15/18 no vb lof colp done today Mya Kapadia MD on 04/15/18 Visit Date: 03/25/18 Nausea problematic. Does not like taste of promethazine and increases vomiting. No Vb, LOF. YOUNG Doll on 03/25/18 Diagnostics Diagnostics Labs Blood Type O NEGATIVE 07/13/18 Antibody Screen NEGATIVE 07/13/18 Hct 32.8 % (37-47) L 07/13/18 Hgb 10.7 g/dl (12.0-15.0) L 07/13/18 Obstetrics Ultrasound 05/12/18 Glucose 1 Hr 50 gm 144 mg/dL (70-140) H 07/13/18 Details: HIV: Urine Culture: Sequential Screen: NIPT Screen: ROS Const Denies fever(s) GI Denies abdominal pain, Reports as per HPI Denies vaginal discharge, Denies abnormal vaginal bleeding, Reports as per HPI Exam Const General: healthy appearing, comfortable, no acute distress GI Inspection: normal to inspection Palpation: soft, nontender Assessment AND Plan Problems 1. Rh negative state in antepartum period O09.899; Z67.91 rhogam given at 28 weeks 2. History of labor Z87.51 Progesterone injections in . 3. History of delivery Z98.891 Plans repeat CS with BTO 09/26/18 4. Atypical squamous cell changes of undetermined significance (ASCUS) on cervical cytology with positive high risk human papilloma virus (HPV) R87.610; R87.810 pap PP 5. Supervision of high risk in first trimester O. PRR Grav 6/5 ZULY 10/02/18. PC: Obey Todd, Yari, Omar, Tsering. FOB: [place]. (is , getting ) Repeat US FU in 4 weeks due to body habitus. 6. Anemia during in second trimester O99.012 iron, check cbc monthly 7. Abnormal glucose affecting O99.810 3 hr GTT normal Plan movement and labor precautions reviewed. ACOG trimester education reviewed and updated. see problem list details for updated plan management information and see below for orders placed at this visit. [place] appropriate handout given. Orders Orders: Coding Level of Care Code OB Routine Diagnoses Rh negative state in antepartum period O09.899; Z67.91 History of labor Z87.51 History of delivery Z98.891 Atypical squamous cell changes of undetermined significance (ASCUS) on cervical cytology with positive high risk human papilloma virus (HPV) R87.610; R87.810 Supervision of high risk in first trimester O09. Anemia during in second trimester O99.012 Abnormal glucose affecting O99.810 09/06/18 1154 <Electronically signed by Mya Kapadia MD> Date Mya Pineda Signature: Date (if applicable) CC: MONORAIL CRANE OPERATOR OFFICE VISIT Observed: 07/27/2018 Status: F Source: [facility] REPORT 11:28 AM [facility] [address] [place] [address]. [address] [place] [address] OFFICE VISIT Date of Service: 07/27/18 MR#: [id number] Acct: [id number] Name: ANKIT MEJIA Rep #: [id number] : 1985 Provider: CARMEN Russell Age/Sex: 33/F Location: [facility] Status: Signed Intake Vital Signs07/27/18 Height 5 ft 3 in 07/27/18 Weight: 202 lb 4 oz 07/27/18 Body Mass Index (BMI) 35.8 07/27/18 Blood Pressure 124/70 H Intake Visit Reasons: est ob 30w Manager Environmental Services Required: No Is patient in pain?: No Allergies No Known Allergies Allergy (Verified 07/27/18 11:04) Medications [id number] fum 28 mg iron-folate no.6 1 mg-dha 300 mg capsule 1 cap PO .daily #90 cap 02/15/18 [Rx Confirmed 07/27/18] promethazine 12.5 mg tablet 12.5 mg PO Q6H PRN #60 tab 02/15/18 [Rx Confirmed 07/27/18] ondansetron HCl 4 mg tablet 4 mg PO Q6H PRN #60 tab 03/25/18 [Rx Confirmed 07/27/18] metoclopramide 10 mg tablet 10 mg PO TID PRN #90 tab 04/15/18 [Rx Confirmed 07/27/18] ferrous sulfate 325 mg (65 mg iron) tablet,delayed release 325 mg PO QDAY #90 tab 07/27/18 [Rx Confirmed 07/27/18] Last Menstral Period: 12/22/17 Zika: Zika virus screening: Negative : No PFSH PFSH Surgical History S/P (Resolved) S/P cholecystectomy (Resolved) Social History Smoking Status: Never smoker alcohol intake: never substance use type: does not use caffeine: Yes what type of physical activity do you participate in: walking frequency: 5-6 times per week seatbelt use: always do you feel safe at home: Yes additional social history: () Patient is not working Pregancy History 6 Elective abortions Hx Para 5 Spontaneous abortions Past Pregnancies Del. DateName GA/Weeks Outcome Route Bth WeighInfant GeLabor LgtAnesthesiDel LocatProvider FOB t n h a n HPI est ob 30w: Details: ANKIT MEJIA is a 33 year old who presents for routine OB visit. OB Visit ZULY Calculator Estimated Delivery Date 10/02/18 Based on Ultrasound Date 02/22/18 Current WG 30w 3d Number 1 Expected Delivery Route/Plan R CS and BTO Specific Issue/Plans flu vaccine: declines tdap vaccine: given rhogam: given LARC form signed: plans BTO labor support person: [place] pain management: R CS cut cord/dad catch: [] : [] PP control planned: [] special requests: [] Initial Weight: Not Recorded Date Weight BP Urine PFHR FuHt Pres MCTX DilatioFetal SVisit NProvideComment rot ov n t ote r s EGA Ef Gluco faced se 03/25/1202 lb 108/78 [id number] Nausea 8 6 oz e problem 12 atic. D w 5d Negati oes not ve like t aste of promet hazine and inc reases vomitin g. No V b, LOF. Visit Notes Visit Date: 07/27/18 Doing well. denies VB, LOF JULIO CÉSAR DollC on 07/27/18 Visit Date: 07/13/18 no vb lof good fm n oreguar ctx schedule rltcs tl papers signed Mya Kapadia MD on 07/13/18 Visit Date: 04/15/18 no vb lof colp done today Mya Kapadia MD on 04/15/18 Visit Date: 03/25/18 Nausea problematic. Does not like taste of promethazine and increases vomiting. No Vb, LOF. YOUNG Doll on 03/25/18 Diagnostics Diagnostics Labs Blood Type O NEGATIVE 07/13/18 Antibody Screen NEGATIVE 07/13/18 Hct 32.8 % (37-47) L 07/13/18 Hgb 10.7 g/dl (12.0-15.0) L 07/13/18 Obstetrics Ultrasound 05/12/18 Rubella IgG Antibody 107.6 IU/mL 02/15/18 RPR NONREACTIVE (NONREACTIVE) 02/15/18 Hep Bs Antigen Negative (Negative) 02/15/18 Chlam trachomat DNA PCR Negative (Negative) 02/15/18 N.gonorrhoeae DNA (PCR) Negative (Negative) 02/15/18 Glucose 1 Hr 50 gm 144 mg/dL (70-140) H 07/13/18 Details: HIV: Urine Culture: Sequential Screen: NIPT Screen: ROS Const Reports system reviewed and no additional complaints, except as docu GI Denies nausea, Denies vomiting, Denies abdominal pain Exam Const General: cooperative Nutritional Appearance: well nourished GI Palpation: soft, nontender, other (gravid) Results [id number] Office Urine Glucose Negative Last Edit by Krystal Damon on 07/27/18 11:13 Office Urine Protein Negative Last Edit by Krystal Damon on 07/27/18 11:13 Assessment AND Plan Problems 1. Supervision of high risk in first trimester O09.91 PRR Grav 6/5 ZULY 10/02/18. PC: Obey Todd Zofia, Vincent, Karolina. FOB: [place]. (is , getting ) Repeat US FU in 4 weeks due to body habitus. 2. History of labor Z87.51 Progesterone inj start at 16 week. Used in last 2 pregnancies. 3. screening encounter Z36.9 Referral to [facility] for NT 4. Rh negative state in antepartum period O09.899; Z67.91 rhogam as needed and 28 weeks 5. History of Z98.891 Plans repeat CS with BTO 12/31/18 6. Anemia during in second trimester O99.012 7. Abnormal glucose affecting O99.810 3 hr GTT normal 8. Atypical squamous cell changes of undetermined significance (ASCUS) on cervical cytology with positive high risk human papilloma virus (HPV) R87.610; R87.810 pap PP 9. 30 weeks gestation of Z3A.30 Plan Orders placed: none Reviewed of labor precautions, movement/kick counts ACOG trimester education reviewed and updated See problem list details for updated plan of care Gestational age appropriate handout given RTO: 2 weeks Orders Orders: Medications New: Coding Level of Care Code Off vis,est,level 3 Diagnoses Supervision of high risk in first trimester O09.91 History of labor Z87.51 screening encounter Z36.9 Rh negative state in antepartum period O09.899; Z67.91 History of Z98.891 Anemia during in second trimester O99.012 Abnormal glucose affecting O99.810 Atypical squamous cell changes of undetermined significance (ASCUS) on cervical cytology with positive high risk human papilloma virus (HPV) R87.610; R87.810 30 weeks gestation of Z3A.30 18 1128 <Electronically signed by Patsy VIDAL> Date Patsy ANGELAC Cosigner Signature: Date (if applicable) CC: GESTATIONAL GTT 3HR Collected: 07/19/2018 Status: F Source: [place] 100G 10:14 AM [facility] REPOSITORY Order Comment: Is Patient Fasting? Y TYPE CODE TESTS RESULT OUT OF RANGE REFERENCE UNITS LAB L501.0650 <105 mg/dL Normal GLU 83 GTT-FASTING Result Comment: GLUCOSE TOLERANCE TEST FOR Reference Interval GESTATIONAL DIABETES Fasting <105 mg/dL 1 hour <190 mg/dl 2 hour <165 mg/dl 3 hour <145 mg/dl LAB L501.0660 <190 mg/dL Normal GLU GTT- 1HR 141 LAB L501.0670 <165 mg/dL Normal GLU GTT- 2HR 95 LAB L501.0680 <145 L Normal GLU GTT- 3HR 85 Performed By: #### L500.4710 #### [facility] [place], [address] CBC W/DIFF, AUTOMATED Collected: 07/13/2018 Status: F Source: [place] 11:37 AM [facility] REPOSITORY TYPE CODE TESTS RESULT OUT OF RANGE REFERENCE UNITS LAB L100.1000 4.4-11.0 K/mm3 Normal WBC 7.6 LAB L100.1200 4.2-5.4 M/mm3 Low RBC 3.61 LAB L100.1300 12.0-15.0 g/dl Low HGB 10.7 LAB L100.1400 37-47 % Low HCT 32.8 LAB L100.1500 81-99 fL Normal MCV 90.9 LAB L100.1600 27.0-32.0 pg Normal MCH 29.6 LAB L100.1700 32-36 g/gl Normal MCHC 32.6 LAB L100.1810 11.6-14.6 % Normal RDW CV 12.9 LAB L100.1820 35.1-43.9 fl Normal RDW SD 41.4 LAB L100.1900 150-450 K/mm3 Normal PLT 200 LAB L100.2000 6.2-12.0 fl Normal MPV 9.9 LAB L100.2100 47-70 % High NEUT% 76.1 LAB L100.2200 19-41 % Low LY% 18.5 LAB L100.2300 0-10 % Normal MONO% 4.1 LAB L100.2400 0-5 % Normal EO% 0.7 LAB L100.2500 0-1 % Normal BASO% 0.1 LAB L100.2550 0.0-0.9 % Normal IM GRAN % 0.500 Result Comment: IG% - Immature Granulocytes (promyelocytes, myelocytes and metamyelocytes) > 1% indicates that a LEFT SHIFT is Present. LAB L100.2620 2.0-7.7 X10 3/uL Normal Absolute Neut 5.8 LAB L100.2720 0.83-4.51 X10 3/ul Normal Absolute Lymph 1.41 Performed By: #### L100.0100 #### [facility] [address] [place], [address] GLUCOSE CHALLENGE GEST Collected: 07/13/2018 Status: F Source: [place] 1H 50G 11:37 AM [facility] REPOSITORY TYPE CODE TESTS RESULT OUT OF RANGE REFERENCE UNITS LAB L501.0250 70-140 mg/dL High GLU GEST 144 50g 1H Performed By: #### L501.0250, B101.7450 #### [facility] [address] [place], [address] TYPE AND SCREEN Collected: 07/13/2018 Status: F Source: [place] 11:37 AM [facility] REPOSIT[facility] Order Comment: Reason for Type AND Screen/Red Cells: TYPE CODE TESTS RESULT OUT OF RANGE REFERENCE UNITS LAB B10.0800 O Normal BLOOD TYPE GEL NEGATIVE LAB B100.4000 Normal Antibody NEGATIVE Screen Performed By: #### L501.0250, B101.7450 #### [facility] [address] [place], [address] MONORAIL CRANE OPERATOR OFFICE VISIT Observed: 07/13/2018 Status: F Source: [place] REPORT 11:27 AM [facility] REPOSITORY [facility] Emergency Department [address] [place] [address] OFFICE VISIT Date of Service: 07/13/18 MR#: [id number] Acct: [id number] Name: ANKIT MEJIA Khushi Rep #: [id number] : 1985 Provider: Mya Kapadia MD Age/Sex: 33/F Location: [facility] Status: Signed Intake Vital Signs07/13/18 Height 5 ft 3 in 07/13/18 Weight: 203 lb 07/13/18 Body Mass Index (BMI) 35.9 07/13/18 Blood Pressure 100/7 L Intake Visit Reasons: est ob 28 weeks Chief Complaint: est ob Manager Environmental Services Required: No Is patient in pain?: No Allergies No Known Allergies Allergy (Verified 07/13/18 10:58) Medications [id number] fum 28 mg iron-folate no.6 1 mg-dha 300 mg capsule 1 cap PO .daily #90 cap 02/15/18 [Rx Confirmed 07/13/18] promethazine 12.5 mg tablet 12.5 mg PO Q6H PRN #60 tab 02/15/18 [Rx Confirmed 07/13/18] ondansetron HCl 4 mg tablet 4 mg PO Q6H PRN #60 tab 03/25/18 [Rx Confirmed 07/13/18] metoclopramide 10 mg tablet 10 mg PO TID PRN #90 tab 04/15/18 [Rx Confirmed 07/13/18] Last Menstral Period: 12/22/17 Zika: Zika virus screening: Negative : No PFSH PFSH Surgical History S/P (Resolved) S/P cholecystectomy (Resolved) Social History Smoking Status: Never smoker alcohol intake: never substance use type: does not use caffeine: Yes what type of physical activity do you participate in: walking frequency: 5-6 times per week seatbelt use: always do you feel safe at home: Yes additional social history: () Patient is not working Pregancy History 6 Elective abortions Hx Para 5 Spontaneous abortions Past Pregnancies Del. DateName GA/Weeks Outcome Route Bth WeighInfant GeLabor LgtAnesthesiDel LocatProvider FOB t n h a n HPI est ob 28 weeks: Details: ANKIT MEJIA is a 33 year old who presents for routine OB visit. OB Visit ZULY Calculator Estimated Delivery Date 10/02/18 Based on Ultrasound Date 02/22/18 Current WG 28w 3d Number 1 Expected Delivery Route/Plan R CS and BTO Specific Issue/Plans flu vaccine: [] minichart given: [] tdap vaccine: [] rhogam: [] LARC form signed: [] labor support person: [] pain management: [] cut cord/dad catch: [] : [] PP control planned: [] special requests: [] Initial Weight: Not Recorded Date Weight BP Urine PrFHR FuHt Pres MoCTX DilationFetal StVisit NoProviderComments E ot v te GA G Effac lucose ed Visit Notes Visit Date: 07/13/18 no vb lof good fm n oreguar ctx schedule rltcs tl papers signed Mya Kapadia MD on 07/13/18 Visit Date: 04/15/18 no vb lof colp done today Mya Kapadia MD on 04/15/18 Visit Date: 03/25/18 Nausea problematic. Does not like taste of promethazine and increases vomiting. No Vb, LOF. Patsy Russell NP-Fran on 03/25/18 Diagnostics Diagnostics Labs Blood Type O NEGATIVE 02/15/18 Antibody Screen NEGATIVE 02/15/18 Hct 36.7 % (37-47) L 02/15/18 Hgb 12.2 g/dl (12.0-15.0) 02/15/18 Obstetrics Ultrasound 05/12/18 Rubella IgG Antibody 107.6 IU/mL 02/15/18 RPR NONREACTIVE (NONREACTIVE) 02/15/18 Hep Bs Antigen Negative (Negative) 02/15/18 Chlam trachomat DNA PCR Negative (Negative) 02/15/18 N.gonorrhoeae DNA (PCR) Negative (Negative) 02/15/18 Details: HIV: Urine Culture: Sequential Screen: NIPT Screen: ROS Const Denies fever(s) GI Denies abdominal pain, Reports as per HPI Denies vaginal discharge, Denies abnormal vaginal bleeding, Reports as per HPI Exam Const General: healthy appearing, comfortable, no acute distress GI Inspection: normal to inspection Palpation: soft, nontender Office Meds RhoGAM Ultra-Filtered PLUS Performing Provider: Mya Kapadia MD Administered by: Alyse Farias on 07/13/18 11:18 Dose Route Admin Location Lot Number Expiration Date [facility] Contract Driver 1,500 unit IM left gluteal [id number] 01/01/20 5364-7507-79 Kadient Results [id number] Office Urine Glucose Negative Last Edit by Alyse Farias on 07/13/18 11:14 Office Urine Protein Negative Last Edit by Alyse Farias on 07/13/18 11:14 Immunizations Boostrix Tdap Performing Provider: Mya Kapadia MD Administered by: Helen Virgen on 07/13/18 11:10 Dose Route Admin Location Lot Number Expiration Date [facility] Contract Driver 0.5 mL IM Right Arm (SQ) [id number] 08/15/24 64701-022-23 [employer] VIS Given Date VIS Publication Date 07/13/18 02 Eligibility Eligibility Date Assessment AND Plan Problems 1. Rh negative state in antepartum period O09.899; Z67.91 rhogam as needed and 28 weeks 2. History of delivery Z98.891 Plans repeat CS with BTO 3. screening encounter Z36.9 Referral to [facility] for NT 4. Atypical squamous cell changes of undetermined significance (ASCUS) on cervical cytology with positive high risk human papilloma virus (HPV) R87.610; R87.810 pap PP 5. Supervision of high risk in first trimester O09. PRR Grav 6/5 ZULY 10/02/18. PC: Obey Todd, Yari, Tsering Nelson. FOB: [place]. (is , getting ) Repeat US FU in 4 weeks due to body habitus. 6. History of labor Z87.51 Progesterone inj start at 16 week. Used in last 2 pregnancies. Plan movement and labor precautions reviewed. ACOG trimester education reviewed and updated. see problem list details for updated plan management information and see below for orders placed at this visit. GA appropriate handout given. Orders Orders: Medications Discontinued: Boostrix Tdap (diphth,pertus(acell),tetanus) Discontinued 0.5 mL IM ONCE #1 0RF NS Z23 Reason: Office Medication has been Documented as given Coding Level of Care Code Off vis,est,level 3 Diagnoses Rh negative state in antepartum period O09.899; Z67.91 History of delivery Z98.891 screening encounter Z36.9 Atypical squamous cell changes of undetermined significance (ASCUS) on cervical cytology with positive high risk human papilloma virus (HPV) R87.610; R87.810 Supervision of high risk in first trimester O09. History of labor Z87.51 07/13/18 1127 <Electronically signed by Mya Kapadia MD> Date Mya Kapadia MD Cosigner Signature: Date (if applicable) CC: OB ANATOMY SCAN Observed: 05/12/2018 Status: F Source: [place] 1:05 PM [facility] REPOSITORY [facility] Imaging Services [address] [place] [address] OB Anatomy Scan MR#: [id number] Acct: [id number] Name: ANKIT MEJIA Rep #: [id number] : 1985 F 33 From: Antonio Min MD PCP: Care Physician, No Primary Status: REG CLI Study: OB Anatomy Scan Date of Exam: 05/12/18 Exam# [id number] Ordering Dr: Mya Kapadia MD ADDENDUM by Antonio Min on 05/25/18 at 1653 US/OB Anatomy Scan 05/25/18 1700 Date cc: No Primary Care Physician; Mya Kapadia MD * Signed ADDENDUM by Antonio Min on 05/25/18 at 1653 ADDENDUM NOTE MORE HISTORY WAS ADDED TO THE ORIGINAL REPORT PER REQUEST: History: ANATOMY. LIMITED EXAMINATION DUE TO PATIENT BODY HABITUS. POOR MACHINE PENETRATION. TRANSVAGINAL REQUIRED. Electronically Signed: Antonio Min MD at 16:53 EDT , Service support , 05/25/18 1653 Date cc: No Primary Care Physician; Mya Kapadia MD * Signed STUDY: SECOND AND THIRD TRIMESTER OBSTETRICAL ULTRASOUND REASON FOR EXAM: Female, 33 years old. Anatomy LMP: TECHNIQUE: Transabdominal and Transvaginal PRIOR ULTRASOUND: February 22, 2018 FINDINGS: There is a single intrauterine fetus. The fetus is in a cephalic presentation. There is demonstrated cardiac activity with a heart rate of 142 bpm. There is a normal amniotic fluid volume. The largest amniotic fluid pocket measures 6.2 cm. The placenta is posterior in location and is not low lying. There are Grade 0 placental changes. The cervix measures 40 mm in length. The bilateral adnexal regions are normal. BIOMETRY: BPD: 45mm: 19 weeks, 5 days HC: 171mm: 19 weeks, 6 days AC: 162mm: 21 weeks, 2 days FL: 32mm: 20 weeks, 1 days CI: 73 FL/BPD: 72 FL/AC: 20 HC/AC: 1.06 age by current US: 20 weeks, 2 days. ZULY by current US: 1.1.19. Estimated weight: 363 grams, +/- 53 grams, 93 %. age by prior US: 19 weeks, 4 days. ZULY by prior US: 1.6.19. Age by LMP: 19 weeks, 4 days. ZULY by LMP: 1.6.19. ANATOMY: Gender: Male Cranium: Normal lateral ventricles. Normal choroid plexus. Normal cerebellum. Normal cisterna magna. The face, nose and lips are not visualized. Chest: Normal 4-chamber heart. Abdomen/Pelvis: Normal diaphragm. Normal stomach. Normal abdominal wall. Normal cord insertion. Normal 3 vessel cord. Normal kidneys. Normal bladder. Spine: Normal cervical spine. Normal thoracic spine. Normal lumbar spine. Normal sacrum. Extremities: Normal bilateral upper extremities. Normal bilateral lower extremities. US/OB Anatomy Scan IMPRESSION: There is a single live intrauterine with a heart rate of 142 bpm. age by current US: 20 weeks, 2 days. ZULY by current US: 1.1.19. The face, nose and lips are not visualized. Electronically Signed: Antonio Min MD at 22:45 EDT , Service support , CC: No Primary Care Physician; Mya Kapadia MD Electronics Mechanic Apprentice: Signed MONORAIL CRANE OPERATOR OFFICE VISIT Observed: 2018 Status: F Source: [place] REPORT 2:20 PM [facility] REPOSITORY [facility] [place] [address] [address] [place] [address] OFFICE VISIT Date of Service: 04/15/18 MR#: [id number] Acct: [id number] Name: ANKIT MEJIA Rep #: [id number] : 1985 Provider: Mya Kapadia MD Age/Sex: 33/F Location: [facility] Status: Signed Intake Vital Signs04/15/18 Height 5 ft 3 in 04/15/18 Weight: 203 lb 2 oz 04/15/18 Body Mass Index (BMI) 35.9 04/15/18 Blood Pressure 101/72 Intake Visit Reasons: 14 weeks/COLP Manager Environmental Services Required: No Accompanied by: Significant Other Is patient in pain?: No Allergies No Known Allergies Allergy (Verified 04/15/18 13:29) Medications [id number] fum 28 mg iron-folate no.6 1 mg-dha 300 mg capsule 1 cap PO .daily #90 cap 02/15/18 [Rx Confirmed 03/25/18] promethazine 12.5 mg tablet 12.5 mg PO Q6H PRN #60 tab 02/15/18 [Rx Confirmed 03/25/18] ondansetron HCl 4 mg tablet 4 mg PO Q6H PRN #60 tab 03/25/18 [Rx Confirmed 03/25/18] metoclopramide 10 mg tablet 10 mg PO TID PRN #90 tab 04/15/18 [Rx Confirmed 04/15/18] Last Menstral Period: 12/22/17 Zika: Zika virus screening: Negative Nurse's Note: Pt. was in the ER around 14 weeks due to bad abdominal pain. PFSH PFSH Surgical History S/P (Resolved) S/P cholecystectomy (Resolved) Social History Smoking Status: Never smoker alcohol intake: never substance use type: does not use caffeine: Yes what type of physical activity do you participate in: walking frequency: 5-6 times per week seatbelt use: always do you feel safe at home: Yes additional social history: () Patient is not working Pregancy History 6 Elective abortions Hx Para 5 Spontaneous abortions Past Pregnancies Del. DateName GA/Weeks Outcome Route Bth WeighInfant GeLabor LgtAnesthesiDel LocatProvider FOB t n h a n HPI 14 weeks/COLP: Details: ANKIT MEJIA is a 33 year old who presents for routine OB visit. OB Visit ZULY Calculator Estimated Delivery Date 10/02/18 Based on Ultrasound Date 02/22/18 Current WG 15w 5d Number 1 Expected Delivery Route/Plan R CS and BTO Specific Issue/Plans flu vaccine: [] minichart given: [] tdap vaccine: [] rhogam: [] LARC form signed: [] labor support person: [] pain management: [] cut cord/dad catch: [] : [] PP control planned: [] special requests: [] Initial Weight: Not Recorded Date Weight BP Urine PrFHR FuHt Pres MoCTX DilationFetal StVisit NoProviderComments E ot v te GA G Effac lucose ed Visit Notes Visit Date: 04/15/18 no vb lof colp done today Mya Kapadia MD on 04/15/18 Visit Date: 03/25/18 Nausea problematic. Does not like taste of promethazine and increases vomiting. No Vb, LOF. YOUNG Doll on 03/25/18 Diagnostics Diagnostics Labs Blood Type O NEGATIVE 02/15/18 Antibody Screen NEGATIVE 02/15/18 Hct 36.7 % (37-47) L 02/15/18 Hgb 12.2 g/dl (12.0-15.0) 02/15/18 Obstetrics Ultrasound 02/22/18 Rubella IgG Antibody 107.6 IU/mL 02/15/18 RPR NONREACTIVE (NONREACTIVE) 02/15/18 Hep Bs Antigen Negative (Negative) 02/15/18 Chlam trachomat DNA PCR Negative (Negative) 02/15/18 N.gonorrhoeae DNA (PCR) Negative (Negative) 02/15/18 Details: HIV: Urine Culture: Sequential Screen: NIPT Screen: Office Procedures Colposcopy Colposcopy Reason for colposcopy: ASCUS, positive HR HPV types Pap/HAIDER history: no prior abnormal pap Consent Signed: Yes Time out performed: Yes Time: 14:18 Acetowhite epithelium (cervix): 2 o'clock, 3 o'clock, 4 o'clock Punctation (cervix): none Abnormal vessels (cervix): none Biopsies (cervix): none Cervix+upper/adj vagina: Yes Assessment AND Plan Problems 1. History of delivery Z98.891 Plans repeat CS with BTO 2. screening encounter Z36.9 Referral to [facility] for NT 3. Rh negative state in antepartum period O09.9; Z 4. Atypical squamous cell changes of undetermined significance (ASCUS) on cervical cytology with positive high risk human papilloma virus (HPV) R87.610; R87.810 pap PP 5. Supervision of high risk in first trimester O PRR Grav 6 ZULY 10/02/18. PC: Obey Todd Zofia, Tsering Nelson. FOB: [place]. (is , getting ) Plan Orders placed: colp done ACOG trimester education reviewed and updated. see problem list details for updated plan management information. GA appropriate handout given. Orders Orders: Medications New: Coding Level of Care Code Off vis,est,level 3 Diagnoses History of delivery Z98.891 screening encounter Z36.9 Rh negative state in antepartum period O09.9; Z Atypical squamous cell changes of undetermined significance (ASCUS) on cervical cytology with positive high risk human papilloma virus (HPV) R87.610; R87.810 Supervision of high risk in first trimester O Additional Codes Colposcopy - Cervix+upper/adj vagina: Yes ([id number]) 04/15/18 1420 <Electronically signed by Mya Kapadia MD> Date Myaberyl Pineda Signature: Date (if applicable) CC: EMERGENCY REPORT Observed: 04/03/2018 Status: F Source: [place] 8:15 PM [facility] EMERGENCY ROOM REPORT NAME ACCOUNT SEX AGE ADMIT DISCHARGE PT MED. RECORD# NUMBER DATE DATE TYPE JACKIE [id number] Lorrie 32 04/02/18 04/03/18 3 ANKIT Puri [id number] ROOM: ER DATE OF : 1985 DICTATING PHYSICIAN: Alice Cary CHIEF COMPLAINT/HISTORY OF PRESENT ILLNESS: This patient was having pain for about a day. It is in her lower abdominal area. No fevers or chills. She has a cramping pain a little bit, said it is an 8/10, but she has a 5/10. It is intermittent, cramping, sharp. Nothing makes it better or worse. She has had nausea. She is 14 weeks . She had an ultrasound when she was 6 weeks. She says it was normal. PAST SURGICAL HISTORY: She has had a cholecystectomy, . PAST MEDICAL HISTORY: She has no high blood pressure, diabetes. SOCIAL HISTORY: She does not smoke or drink. REVIEW OF SYSTEMS: Ten systems reviewed and negative except as mentioned above. PHYSICAL EXAMINATION: She is an awake, alert, oriented female in no acute distress. She is afebrile. Pulse 88, respirations 16, blood pressure 136/90, pulse oximetry 98% on room air. Head is normocephalic, atraumatic. Eyes: Pupils equal, round, reactive to light. Extraocular muscles intact. Nares are patent. Throat has adequate moisture. Uvula is midline. Neck: Supple. No petechiae or rash. Heart without murmur. S1 equals S2. No S3 or S4 appreciated. Lungs are clear to auscultation bilaterally. No rales, rhonchi, retractions. Abdomen: Soft with minimal tenderness. No rebound tenderness. No tenderness from McBurney point tenderness. Skin is warm and dry. DIAGNOSTIC DATA: She had ultrasound, which showed questionable margin of previa. She is 14 weeks. Urinalysis was unremarkable. Lipase was unremarkable. Chemistries are unremarkable. Glucose 172. White count was normal. EMERGENCY DEPARTMENT COURSE AND TREATMENT: She was given fluids. While she was here she had a bowel movement. Says she feels no pain at this time. DIAGNOSES: 1. Abdominal pain, cause not clear. 2. Threatened miscarriage. Page 1 of 2 ANKIT MEJIA Emergency Room Report 3. Elevated glucose. PLAN/DISPOSITION: She will be discharged in stable condition to follow up with _ _ _ _ _ in 2 to 3 days. She can follow up here at 10:00 for a recheck. Dictated By: Alice Cary DO 04/03/18 02:36 JOB #: [id number] Transcribed By: iva 04/03/18 07:39 Electronically signed by: PEREZ Cary D.O. 04/03/18 20:15 Page 2 of 2 ANKIT MEJIA Khushi Emergency Room Report URINALYSIS Collected: 04/03/2018 Status: F Source: [place] 1:20 AM [facility] REPOSITORY TYPE CODE TESTS RESULT OUT OF REFERENCE UNITS RANGE LAB URINALYSIS (LOINC) URINALYSIS Result Comment: URINALYSIS LAB Specimen Type(LOINC) Specimen UNSPECIFIED Type LAB Color(LOINC) NORMAL: YELLOW Color p.yel LAB Clarity(LOINC) NORMAL: CLEAR Clarity clear LAB ph(LOINC) NORMAL: 5.0-8.0 ph 6.5 LAB Protein(LOINC) NORMAL: NEGATIVE Protein NEG LAB Glucose(LOINC) NORMAL: NORMAL Glucose NORM LAB Ketone(LOINC) NORMAL: NEGATIVE Ketone NEG LAB Bilirubin(LOINC) NORMAL: NEGATIVE Bilirubin NEG LAB Blood(LOINC) NORMAL: NEGATIVE Blood NEG LAB Urobilinog(LOINC) NORMAL: NORMAL Urobilinog NORM LAB Sp [place](LOINC) NORMAL: 1.010-1.030 Sp [place] 1.015 LAB Nitrite(LOINC) NORMAL: NEGATIVE Nitrite NEG LAB Leukocytes(LOINC) NORMAL: NEGATIVE Leukocytes NEG LAB Microscopic(LOINC ) Microscopic NOT INDICATED Performed By: #### [id number] #### [facility],[address] [place] [address] OB INITIAL >OR= Observed: 04/02/2018 Status: F Source: ALEXANDROLAKESHA WAGGONERKY 14 WEEKS; 1ST GESTAT 11:[address] [address] Patient: ANKIT MEJIA Phone#: : 1985 Age: 32 Gender: F Pt. Type: ER Account: [id number] Location: 052 Ordering: ALICE PATIÑOISINGER Exam Date: 04/02/2018/23:12 Family Phys: MYA KAPADIA Charge Code: 247471 Physician: Screven Order #: [id number] DLP Dose#: PROCEDURE: OB INITIAL >14 WEEKS ULTRASOUND, TRANSABDOMINAL COMPARISON: None. INDICATIONS: Abdominal pain TECHNIQUE: Complete sonographic examination for obstetrical and evaluation were completed by transabdominal ultrasound. FINDINGS: NUMBER: Single. POSITION: Breech. PLACENTA LOCATION: Posterior and marginal. The tip of the placenta is 1.5 cm the cervical os BIPARIETAL DIAMETER: 14 weeks 3 days HEAD CIRCUMFERENCE: 14 weeks 3 days ABD CIRCUMFERENCE: 14 weeks 3 days FEMUR LENGTH: 14 weeks zero days ESTIMATED WEIGHT: 94 g +/- 14 CERVICAL LENGTH: 3.5 cm HEART RATE: 146-174 bpm ABNORMALITIES/OTHER: None. CLINICAL GA: 14 weeks 3 days CLINICAL ZULY: September 28, 2018 ULTRASOUND GA: 14 weeks 2 days ULTRASOUND ZULY: September 29, 2018 CONCLUSION: 1. Single live intrauterine gestation measuring 14 weeks 2 days with estimated date of delivery of September 29, 2018. 2. Marginal placenta. Recommend reevaluation of this area in 20 week anatomy scan. Dictated by: Brittany Kaur MD on 04/03/2018 at 12:50 Continued Report - Page 2 of 2 Patient: ANKIT MEJIA Phone#: : 1985 Age: 32 Gender: F Pt. Type: ER Account: [id number] Location: 052 Ordering: ALICE PATIÑOISINGER Exam Date: 04/02/2018/23:12 Family Phys: MYA KAPADIA Charge Code: [id number] Physician: Screven Order #: [id number] DLP Dose#: Approved by: Brittany Kaur MD on 04/03/2018 at 13:06 CBC Collected: 04/02/2018 Status: F Source: [place]AN[place]O [place] 11:20 PM [facility] REPOSITORY TYPE CODE TESTS RESULT OUT OF RANGE REFERENCE UNITS LAB CBC(LOINC) CBC Result Comment: CBC-COMPLETE BLOOD COUNT LAB WBC(LOINC) 4.5 - 10.8 x 10EE3/UL WBC 10.3 LAB RBC(LOINC) 4.10 - x 10EE6/UL 5.30 RBC 4.37 LAB HEMOGLOBIN(LOINC) 12.0 - g/dl 16.0 HEMOGLOBIN 12.7 LAB HEMATOCRIT(LOINC) 34.0 - % 46.0 HEMATOCRIT 37.1 LAB MCV(LOINC) 80 - 99 fl MCV 85 LAB MCH(LOINC) 27 - 33 pg MCH 29 LAB MCHC(LOINC) 32 - 36 X10 3 MCHC 34 LAB RDW/CV(LOINC) 12.0 - % 15.6 RDW/CV 13.7 LAB PLATELET(LOINC) 150 - 450 x10EE3/UL PLATELET 202 LAB MPV(LOINC) 6.6 - 10.5 fl MPV 8.4 Result Comment: AUTOMATED DIFFERENTIAL LAB NEUT %(LOINC) 46.0 - 76.0 % NEUT % High 85.7 LAB LYMPH %(LOINC) 20.0 - 45.0 % Low LYMPH % 10.5 LAB MONOS %(LOINC) 0.0 - 10.0 % MONOS % 3.5 LAB EO %(LOINC) 0.0 - 7.0 % EO % 0.1 LAB BASO %(LOINC) 0.0 - 2.0 % BASO % 0.2 LAB Lymph #(LOINC) 0.80 - 2.80 x10EE3/U L Lymph # 1.10 LAB Neut #(LOINC) 1.50 - 7.10 x10EE3/U L Neut # High 8.80 LAB Broome #(LOINC) 0.20 - 1.00 x10EE3/U L [place] # 0.40 LAB EO #(LOINC) 0.00 - 0.50 x10EE3/U L EO # 0.00 LAB Baso #(LOINC) 0.00 - 0.10 x10EE3/U L Baso # 0.00 LAB MANUAL DIFF(LOINC) MANUAL DIFF N/A LAB MORPHOLOGY(LOINC ) MORPHOLOGY N/A Result Comment: {CD] Performed By: #### [id number] #### [address] [address] LIPASE Collected: 04/02/2018 Status: F Source: [facility] 11:20 PM [facility] REPOSITORY TYPE CODE TESTS RESULT OUT OF REFERENCE UNITS RANGE LAB LIPASE(LOIN 18.0 - 51.0 U/L C) Low LIPASE 8.0 Performed By: #### [id number] #### [place] [id number] CMP WITH EGFR Collected: 04/02/2018 Status: F Source: [facility] 11:20 PM [facility] REPOSITORY TYPE CODE TESTS RESULT OUT OF RANGE REFERENCE UNITS LAB CMP with eGFR(LOINC) CMP with eGFR Result Comment: COMPREHENSIVE METABOLIC PANEL LAB SODIUM(LOINC) 136 - 145 mmol/l SODIUM Low 134 LAB POTASSIUM(LOINC) 3.5 - 5.1 mmol/L POTASSIUM 3.5 LAB CHLORIDE(LOINC) 98 - 107 mmol/L CHLORIDE 100 LAB CO2(LOINC) 21.0 - mmol/L 31.0 CO2 23.7 LAB GLUCOSE(LOINC) 74 - 106 mg/dl GLUCOSE High 172 LAB BUN(LOINC) 6 - 20 mg/dl BUN 6 LAB CREATININE(LOINC) 0.6 - 1.2 mg/dl CREATININE 0.6 LAB AST/SGOT(LOINC) 13 - 39 U/L AST/SGOT Low 12 LAB ALK PHOS(LOINC) 38 - 126 U/L ALK PHOS 61 LAB CALCIUM(LOINC) 8.6 - mg/dl 10.2 CALCIUM 9.3 LAB TOTAL 6.4 - 8.3 g/dl PROTEIN(LOINC) TOTAL PROTEIN 7.8 LAB ALBUMIN(LOINC) 3.4 - 4.8 g/dL ALBUMIN 3.9 LAB GLOBULIN(LOINC) 1.5 - 3.8 G/DL GLOBULIN High 3.9 LAB A/G RATIO(LOINC) 0.9 - 1.6 A/G RATIO 1.0 LAB TOTAL BILI(LOINC) 0.0 - 1.5 mg/dl TOTAL BILI 0.4 LAB B/C RATIO(LOINC) 0 - 30 ratio B/C RATIO 10 LAB ALT/SGPT(LOINC) 8 - 35 U/L ALT/SGPT 10 LAB ANION GAP(LOINC) 10 - 20 mmol/L ANION GAP 14 LAB AGE(LOINC) years AGE 32 LAB eGFR(LOINC) 60 - 999 ML/MINUTE eGFR >60 LAB eGFR(AA)(LOINC) 60 - 999 ML/MINUTE eGFR(AA) >60 Result Comment: ACCORDING TO THE NATIONAL KIDNEY DISEASE EDUCATION PROGRAM(NKDE), A NORMAL eGFR IS A VALUE GREATER THAN OR EQUAL TO 60 ML/MIN/1.73 SQ METERS. CHRONIC KIDNEY DISEASE: <60mL/MIN/1.73 SQ METERS KIDNEY FAILURE: <15mL/MIN/1.73 SQ METERS THIS TEST SHOULD ONLY BE USED FOR PATIENTS 18 YEARS OF AGE AND OLDER. Performed By: #### [id number] #### [facility],[address] [place], [place] [id number] MONORAIL CRANE OPERATOR OFFICE VISIT Observed: 03/25/2018 Status: F Source: [place] REPORT 11:56 AM [facility]'[address] [place] [id number] OFFICE VISIT Date of Service: 03/25/18 MR#: [id number] Acct: [id number] Name: ANKIT MEJIA Rep #: [id number] : 1985 Provider: CARMEN Russell Age/Sex: 32/F Location: [facility] Status: Signed Intake Vital Signs03/25/18 Height 5 ft 3 in 03/25/18 Weight: 202 lb 6 oz 03/25/18 Body Mass Index (BMI) 35.8 03/25/18 Blood Pressure 108/78 Intake Visit Reasons: 10 weeks Chief Complaint: est ob Manager Environmental Services Required: No Is patient in pain?: No Allergies No Known Allergies Allergy (Verified 03/25/18 11:29) Medications [id number] fum 28 mg iron-folate no.6 1 mg-dha 300 mg capsule 1 cap PO .daily #90 cap 02/15/18 [Rx Confirmed 03/25/18] promethazine 12.5 mg tablet 12.5 mg PO Q6H PRN #60 tab 02/15/18 [Rx Confirmed 03/25/18] ondansetron HCl 4 mg tablet 4 mg PO Q6H PRN #60 tab 03/25/18 [Rx Confirmed 03/25/18] Last Menstral Period: 12/22/17 Zika: Zika virus screening: Negative : No PFSH PFSH Surgical History S/P (Resolved) S/P cholecystectomy (Resolved) Social History Smoking Status: Never smoker alcohol intake: never substance use type: does not use caffeine: Yes what type of physical activity do you participate in: walking frequency: 5-6 times per week seatbelt use: always do you feel safe at home: Yes additional social history: () Patient is not working Pregancy History 6 Elective abortions Hx Para 5 Spontaneous abortions Past Pregnancies Del. DateName GA/Weeks Outcome Route Bth WeighInfant GeLabor LgtAnesthesiDel LocatProvider FOB t n h a n HPI 10 weeks: Details: ANKIT MEJIA is a 32 year old who presents for routine OB visit. OB Visit ZULY Calculator Estimated Delivery Date 10/02/18 Based on Ultrasound Date 02/22/18 Current WG 12w 5d Number 1 Expected Delivery Route/Plan R CS and BTO Specific Issue/Plans flu vaccine: [] minichart given: [] tdap vaccine: [] rhogam: [] LARC form signed: [] labor support person: [] pain management: [] cut cord/dad catch: [] : [] PP control planned: [] special requests: [] Initial Weight: Not Recorded Date Weight BP Urine PrFHR FuHt Pres MoCTX DilationFetal StVisit NoProviderComments E ot v te GA G Effac lucose ed Visit Notes Visit Date: 03/25/18 Nausea problematic. Does not like taste of promethazine and increases vomiting. No Vb, LOF. YOUNG Doll on 03/25/18 Diagnostics Diagnostics Labs Blood Type O NEGATIVE 02/15/18 Antibody Screen NEGATIVE 02/15/18 Hct 36.7 % (37-47) L 02/15/18 Hgb 12.2 g/dl (12.0-15.0) 02/15/18 Obstetrics Ultrasound 02/22/18 Rubella IgG Antibody 107.6 IU/mL 02/15/18 RPR NONREACTIVE (NONREACTIVE) 02/15/18 Hep Bs Antigen Negative (Negative) 02/15/18 Chlam trachomat DNA PCR Negative (Negative) 02/15/18 N.gonorrhoeae DNA (PCR) Negative (Negative) 02/15/18 Details: HIV: Urine Culture: Sequential Screen: NIPT Screen: ROS Const Reports system reviewed and no additional complaints, except as docu GI Reports nausea, Reports vomiting Exam Const General: cooperative Nutritional Appearance: well nourished GI Palpation: soft, nontender, other (gravid) Results [id number] Office Urine Glucose Negative Last Edit by Helen Virgen on 03/25/18 11:34 Office Urine Protein Negative Last Edit by Helen Virgen on 03/25/18 11:34 Assessment AND Plan Problems 1. Supervision of high risk in first trimester O09.91 PRR Grav 6/5 ZULY 10/02/18. PC: Obey Todd, Yari, Tsering Nelson. FOB: [place]. (is , getting ) 2. History of labor Z87.51 Progesterone inj start at 16 week. Used in last 2 pregnancies. 3. screening encounter Z36.9 Referral to [facility] for NT 4. Rh negative state in antepartum period O09.899; Z67.91 5. History of Z98.891 Plans repeat CS with BTO 6. 12 weeks gestation of Z3A.12 7. Nausea and vomiting during O21.9 Plan Orders placed: Discussed risk of zofran and agrees to start. Will call if nausea/vomiting persists. Is keeping fluids down. Had 5# weight loss Will start [place] at 16 week gestation Reviewed of symptoms to report to office. ACOG trimester education reviewed and updated See problem list details for updated plan of care Gestational age appropriate handout given RTO: 4 weeks Orders Orders: Medications New: Coding Level of Care Code Off vis,est,level 3 Diagnoses Supervision of high risk in first trimester O09.91 History of labor Z87.51 screening encounter Z36.9 Rh negative state in antepartum period O09.899; Z67.91 History of Z98.891 12 weeks gestation of Z3A.12 Nausea and vomiting during O21.9 03/25/18 1156 <Electronically signed by Patsy VIDAL> Date Patsy VIDAL Cosigner Signature: Date (if applicable) CC: INIT OB < 14WKS US Observed: 02/22/2018 Status: F Source: [place] 12:16 PM [facility] REPOSITORY [facility] Imaging Services [address] [place] [address] Init OB < 14Wks US MR#: [id number] Acct: [id number] Name: ANKIT MEJIA Rep #: [id number] : 1985 F 32 From: Kishore Hayes MD PCP: Care Physician, No Primary Status: REG CLI Study: Init OB < 14Wks US Date of Exam: 02/22/18 Exam# [id number] Ordering Dr: Patsy Russell STUDY: FIRST TRIMESTER OBSTETRICAL ULTRASOUND REASON FOR EXAM: Female, 32 years old. dating. LMP: December 22, 2017. TECHNIQUE: Transabdominal and Transvaginal PRIOR ULTRASOUND: None. FINDINGS: There is visualization of a single gestational sac in a normal intrauterine position. There is a visualized yolk sac. The yolk sac measures 5 mm.. The placenta is non-visualized. There is visualization of a live embryo. The crown-rump length (CRL) measures 1.79 cm, indicating an estimated gestational age (EGA) of 8 weeks, 2 days. There is demonstrated cardiac activity with a heart rate of 146 bpm. The estimated gestation age (EGA) by LMP is 8 weeks, 6 days. The estimated date of delivery (ZULY) by LMP is September 28, 2018. The estimated gestation age (EGA) by US is 8 weeks, 2 days. The estimated date of delivery (ZULY) by US is October 02, 2018. The uterus measures 13.9 cm x 8.0 cm x 6.4 cm.. There is no demonstrated uterine fibroid. The cervix is closed. There is a 9 mm x 8 mm x 4 mm subchorionic bleed. The right ovary measures 4.2 cm x 4.6 cm x 2.4 cm. There is no right ovarian cyst. There is no visualized right adnexal mass or complex lesion. The left ovary measures 4.0 cm x 3.5 cm x 2.0 cm. There is no left ovarian cyst. There is no visualized left adnexal mass or complex lesion. There is no fluid in the cul de sac. US/Init OB < 14Wks US IMPRESSION: Single live intrauterine gestation with a mean gestational age of 8 weeks and 2 days. Subcentimeter subchorionic bleed. Electronically Signed: Kishore Hayes MD at 14:43 EDT Tel [phone], Service support , CC: CARMEN Russell; No Primary Care Physician Electronics Mechanic Apprentice: Signed CT/NG [facility] BY PCR Collected: 02/15/2018 Status: F Source: [place] 4:53 PM [facility] REPOSITORY TYPE CODE TESTS RESULT OUT OF RANGE REFERENCE UNITS LAB L8200.2100 Negative Normal Chlam Negative Trac PCR LAB L8200.2200 Negative Normal NG by Negative PCR Performed By: #### L8200.1999, M100.0650 #### [facility] [address] [place], [place], [id number] Observed: 02/15/2018 Status: F Source: [place] CULTURE, URINE 4:53 PM [facility] REPOSITORY Urine Culture Below infection level. Probable contaminants. ORGANISM 1: Mixed Gram Positive Organisms [place] Count 1000-10,000 Performed By: #### L8200.1999, M100.0650 #### [facility] [address] [place], [address] MONORAIL CRANE OPERATOR OFFICE VISIT Observed: 02/15/2018 Status: F Source: [place] REPORT 1:18 PM [facility] REPOSITORY [facility] [address] [place] [address] OFFICE VISIT Date of Service: 02/15/18 MR#: [id number] Acct: [id number] Name: ANKIT MEJIA Rep #: [id number] : 1985 Provider: CARMEN Russell Age/Sex: 32/F Location: [facility] Status: Signed Intake Vital Signs02/15/18 Height 5 ft 3 in 02/15/18 Weight: 207 lb 2 oz 02/15/18 Body Mass Index (BMI) 36.6 Intake Visit Reasons: NOB - LMP 12/22 Manager Environmental Services Required: No Is patient in pain?: No Allergies No Known Allergies Allergy (Verified 02/15/18 11:29) Medications [id number] fum 28 mg iron-folate no.6 1 mg-dha 300 mg capsule 1 cap PO .daily #90 cap 02/15/18 [Rx Confirmed 02/15/18] promethazine 12.5 mg tablet 12.5 mg PO Q6H PRN #60 tab 02/15/18 [Rx Confirmed 02/15/18] Last Menstral Period: 12/22/17 Zika: Zika virus screening: Negative : No PFSH PFSH Surgical History S/P (Resolved) S/P cholecystectomy (Resolved) Social History Smoking Status: Never smoker alcohol intake: never substance use type: does not use caffeine: Yes what type of physical activity do you participate in: walking frequency: 5-6 times per week seatbelt use: always do you feel safe at home: Yes additional social history: () Patient is not working Pregancy History 6 Elective abortions Hx Para 5 Spontaneous abortions Past Pregnancies Del. DateName GA/Weeks Outcome Route Bth WeighInfant GeLabor LgtAnesthesiDel LocatProvider FOB t n h a n HPI NOB - LMP 12/22: Details: ANKIT MEJIA is a 32 year old who presents for New OB visit. OB Visit ZULY Calculator Estimated Delivery Date 10/07/18 Based on Ultrasound Date 02/15/18 Current WG 6w 4d Number 1 Expected Delivery Route/Plan R CS and BTO Specific Issue/Plans flu vaccine: [] minichart given: [] tdap vaccine: [] rhogam: [] LARC form signed: [] labor support person: [] pain management: [] cut cord/dad catch: [] : [] PP control planned: [] special requests: [] Menstrual History Last Menstral Period: 12/22/17 Reported LMP: definite Normal amount/duration: Yes Frequency in days: 4 On hormonal BC at conception: No Antepartum Record Genetic Screening: Congenital Heart Defect: Other, Neural Tube Defect: Other, Hemoglobinopathy Or Carrier: Other, Cystic Fibrosis: Other, Chromosome Abnormality: Other, Albino-Sachs: Other, Hemophilia: Other, Intellectual Disability/Autism: Other, Recurrent Loss/Stillbirth: Other, Other Structural Defect: Other, Other Genetic Disease: Other, Maternal Metabolic Disorder: Other Infection History: Live with someone with TB or Exposed to TB: No, Patient or Partner has history of Genital Herpes: No, Rash or Viral illness since last mentrual period: No, Prior GBS-Infected child: No, History of STD: No, HIV Infection: No, History of Hepatitis: No, Recent travel outside of [place]: No, Concern for Hep exposure: No, Varicella immune: Yes (immunized) Medical History Medical History: Positive: History of blood transfusions (2015 after c section), Automatic Head Sawyer surgery (c section X 4), Operations/hospitalizations, Negative: Diabetes, Hypertension, Heart disease, Auto-immune disorder, Kidney disease/UTI, Neurologic/epilepsy, Psychiatric, Depression/ depression, Hepatitis/liver disease, Varicosities/phlebitis, Thyroid dysfunction, Trauma/domestic violence, D (Rh) Sensitized, Pulmonary (e.g.,TB,Asthma), Seasonal allergies, Drug/latex allergies/reactions, Breast, Anesthetic complications, History of abnormal pap, Uterine anomaly/flaca, Infertility, Anti-retroviral treatment, Relevant family history, Other ROS Const Reports as per HPI Card Denies chest pain, Denies shortness of breath Resp Denies shortness of breath GI Denies change in stools Denies difficulty urinating, Denies abnormal vaginal bleeding, Denies vaginal odor, Denies vaginal itching, Denies vaginal discharge Exam Const General: cooperative, healthy appearing, well developed Nutritional Appearance: average body habitus, well nourished Orientation: oriented x3 Neck Neck: normal visual inspection Neck mass: No Thyroid: thyroid normal Chest Chest palpation AND inspection: normal inspection of the chest Breast inspection: normal inspection of the breasts, normal inspection of the axillae Resp Effort AND Inspection: normal respiratory effort GI Inspection: normal to inspection Palpation: soft, nontender, no masses External Female Exam: normal external appearance, normal appearance of the urethra Urethra: normal appearance of the urethra Speculum Exam - Vagina: normal appearance of the vagina, normal vaginal discharge Speculum Exam - Cervix: normal appearance of the cervix, closed cervix, other (thin prep pap with reflex HPV, GCC collected) Bimanual Exam- Vagina AND Uterus: normal bimanual exam, uterine shape normal, uterine size normal (10 weeks) Bimanual Exam- Adnexa, other: normal adnexae, no adnexal masses, adnexae non-tender Skin General: no rashes or lesions noted, turgor normal Assessment AND Plan Problems 1. Encounter for supervision of other normal in first trimester Z34.81 Grav 6/5 ZULY 10/07/18. PC: Obey Todd, Yari, Omar, Tsering. FOB: [place]. (is , getting ) 2. History of Z98.891 Plans repeat CS with BTO 3. Rh negative state in antepartum period O09.899; Z67.91 4. 6 weeks gestation of Z3A.01 Plan Patient oriented to practice and discussed care expectations and screenings. ACOG book offered to patient. labs and 19-20 week anatomy ultrasound ordered Formal US next week as LMP and today's early US not consistent Some issues with nausea and not taking vitamins. Rx PNV and phenergan sent Genetic screening offered to patient and patient chose: wishes to proceed RTO 4 weeks Orders Orders: Medications New: 18-twzx-uyruyr 6-dha 28 mg iron-1 mg -3001 cap PO .daily mg (Prenate DHA) Coding Level of Care Code Off vis,new,level 4 Diagnoses Encounter for supervision of other normal in first trimester Z34.81 Normal : other normal Trimester: first trimester History of Z98.891 Rh negative state in antepartum period O09.899; Z67.91 6 weeks gestation of Z3A.01 02/15/18 1318 <Electronically signed by Patsy VIDAL> Date Patsy [place] NP-C Cosigner Signature: Date (if applicable) CC: CBC W/DIFF, AUTOMATED Collected: 02/15/2018 Status: F Source: [place] 12:43 PM [facility] REPOSITORY TYPE CODE TESTS RESULT OUT OF RANGE REFERENCE UNITS LAB L100.1000 4.4-11.0 K/mm3 Normal WBC 8.2 LAB L100.1200 4.2-5.4 M/mm3 Normal RBC 4.25 LAB L100.1300 12.0-15.0 g/dl Normal HGB 12.2 LAB L100.1400 37-47 % Low HCT 36.7 LAB L100.1500 81-99 fL Normal MCV 86.4 LAB L100.1600 27.0-32.0 pg Normal MCH 28.7 LAB L100.1700 32-36 g/gl Normal MCHC 33.2 LAB L100.1810 11.6-14.6 % Normal RDW CV 13.2 LAB L100.1820 35.1-43.9 fl Normal RDW SD 40.9 LAB L100.1900 150-450 K/mm3 Normal PLT 219 LAB L100.2000 6.2-12.0 fl Normal MPV 10.0 LAB L100.2100 47-70 % Normal NEUT% 69.5 LAB L100.2200 19-41 % Normal LY% 23.8 LAB L100.2300 0-10 % Normal MONO% 5.4 LAB L100.2400 0-5 % Normal EO% 0.7 LAB L100.2500 0-1 % Normal BASO% 0.4 LAB L100.2550 0.0-0.9 % Normal IM GRAN % 0.200 Result Comment: IG% - Immature Granulocytes (promyelocytes, myelocytes and metamyelocytes) > 1% indicates that a LEFT SHIFT is Present. LAB L100.2620 2.0-7.7 X10 3/uL Normal Absolute Neut 5.7 LAB L100.2720 0.83-4.51 X10 3/ul Normal Absolute Lymph 1.95 Performed By: #### L100.0100, B101.7450 #### [facility] [address] [place], [place], [address] TYPE AND SCREEN Collected: 02/15/2018 Status: F Source: [place] 12:43 PM [facility] REPOSITORY Order Comment: Reason for Type AND Screen/Red Cells: TYPE CODE TESTS RESULT OUT OF RANGE REFERENCE UNITS LAB B10.0800 O Normal BLOOD TYPE GEL NEGATIVE LAB B100.4000 Normal Antibody NEGATIVE Screen Performed By: #### L100.0100, B101.7450 #### [facility] [address] [place], [place], [address] HEPATITIS B SURFACE Collected: 02/15/2018 Status: F Source: [place] AG 12:43 PM [facility] REPOSITORY TYPE CODE TESTS RESULT OUT OF RANGE REFERENCE UNITS LAB L3100.0400 Negative Normal HB Negative SURF AG Result Comment: Performed at: [address] [id number] Director Revenue: Omar Hickman PhD, Phone: [phone] Performed By: #### L3100.0390 #### [facility] (refer to report for specific site) refer to report for address and phone number #### L509.4000, E0126.3635, E961.1657 #### [facility] [address] [place], [place], [id number] RUBELLA IGG Collected: 02/15/2018 Status: F Source: [place] 12:43 PM [facility] REPOSITORY TYPE CODE TESTS RESULT OUT OF RANGE REFERENCE UNITS LAB L509.4000 IU/mL Normal Rubella IgG 107.6 Result Comment: Antibody results Interpretation of Immune Status < 5 IU/ml Presumed Non-immune 5 - < 10 IU/ml Equivocal > or = 10 IU/ml Presumed Immune Performed By: #### L3100.0390 #### [facility] (refer to report for specific site) refer to report for address and phone number #### L509.4000, L3890.6005, L700.5000 #### [facility] [address] [place], [place], [id number] HIV - [facility] Collected: 02/15/2018 Status: F Source: [place] 12:43 PM [facility] REPOSITORY TYPE CODE TESTS RESULT OUT OF RANGE REFERENCE UNITS LAB L3890.6005 Nonreactive Normal HIV - [facility] Non-Reactive Performed By: #### L3100.0390 #### [facility] (refer to report for specific site) refer to report for address and phone number #### L509.4000, L3890.6005, L700.5000 #### [facility] [address] [place] [address]. [place], [address] RAPID PLASMIN REAGIN Collected: 02/15/2018 Status: F Source: [place] (RPR) 12:43 PM [facility] REPOSITORY TYPE CODE TESTS RESULT OUT OF REFERENCE UNITS RANGE LAB L700.5000 NONREACTIVE NONREACTIVE Normal RPR Performed By: #### L3100.0390 #### [facility] (refer to report for specific site) refer to report for address and phone number #### L509.4000, L3890.6005, L700.5000 #### [facility] [address] [place] [address]. [place], [place], [id number] PAP IG HPV APTIMA Collected: 02/15/2018 Status: F Source: [place] 16/18,45 11:30 AM [facility] REPOSITORY Order Comment: CYTOLOGY INFORMATION: - CLINICAL INFORMATION: - DATE LMP/MENOPAUSE: LMP/ NOT GIVEN - COLLECTION VIAL: Thin Prep Vial - PETROLEUM TERMINAL PLANT OPERATOR SOURCE: CERVICAL - COLLECTION TECHNIQUE: BRUSH/SPATULA Specimen Comment: [id number] Specimen Comment: No. of containers..01 ThinPrep Vial TYPE CODE TESTS RESULT OUT OF REFERENCE UNITS RANGE LAB L7400.0800 . High DIAGN Comment Result Comment: EPITHELIAL CELL ABNORMALITY. ATYPICAL SQUAMOUS CELLS OF UNDETERMINED SIGNIFICANCE. LAB L7400.0900 . Normal ADEQ Comment Result Comment: Satisfactory for evaluation. Endocervical and/or squamous metaplastic cells (endocervical component) are present. LAB L7400.1400 . Normal PERFORM Comment Result Comment: Carlyn Joe, Manager Of Finance (ASCP) LAB L7400.1700 . Normal SIGN Comment Result Comment: Quintin Patel MD (Charles), Pathologist LAB L7400.1720 . Normal Path prov. Comment ICD9 Result Comment: R87.610 LAB L7400.2575 . Normal TEST METHOD Comment Result Comment: This liquid based ThinPrep(R) pap test was screened with the use of an image guided system. LAB L7400.2600 . Normal . COMM LAB L7400.2700 . Normal PAPSMR Comment Result Comment: The Pap smear is a screening test designed to aid in the detection of premalignant and malignant conditions of the uterine cervix. It is not a diagnostic procedure and should not be used as the sole means of detecting cervical cancer. Both false-positive and false-negative reports do occur. LAB L7400.2760 Negative High HPV APTIMA, HR Positive Result Comment: This test detects fourteen high-risk HPV types (16/18/31/33/35/39/45/ 51/52/56/58/59/66/68) without differentiation. Performed at: [address] [id number] Director Revenue: Yari Hinojosa MD, Phone: [phone] Performed at: [address] [id number] Director Revenue: Jennifer Helms MD, Phone: [phone] Performed at: [address] [id number] Director Revenue: Jennifer Helms MD, Phone: [phone] Performed By: #### L7400.0280 #### [facility] (refer to report for specific site) refer to report for address and phone number ALLERGIES ALLERGIES DATE TYPE / CODE NAME / CODE REACTION SEVERITY SOURCE 09/26/2018 Drug No Known Unknown [place] Allergy/[id number](S [facility] [place] [address] Repository Miscellaneous No Known Moderate Alexandro Pomdiogoparker Allergy/907574374(S Allergies ([facility]OM[facility]) Modifier) Hospital (Qualifier Repository Value) ENCOUNTERS ENCOUNTERS ADMIT/DISCHARGE ACCOUNT ADMITTING ENCOUNTER LOCATION SOURCE NUMBER CLASS 09/26/2018/ [id number] Rika, Inpatient [place] 9 6 Mya Encounter [facility] ing:WPRoom: Repository [id number]: 1 09/26/2018 [id number] Rika, Ambulatory BMSBuilding:[place] 5 Mya MS.CF.[facility] Repository 09/26/2018 [id number] Borisclaudiolasha, Ambulatory BMSBuilding:B [place] 8 Mya MS.CF.[facility] Repository 09/26/2018 [id number] Borisclaudiolasha, Ambulatory BMSBuilding:B [place] 5 Mya MS.CF.[facility] Repository 09/22/2018/ [id number] Ambulatory BMSBuilding:B [place] 8 2 MS.[facility] Repository 09/15/2018 [id number] Ambulatory [place] 1 [facility] ing:OPUS Repository 09/13/2018/ [id number] Ambulatory BMSBuilding:B [place] 8 1 [facility] Repository 09/06/2018 [id number] Ambulatory [place] 3 [facility] ing:LAB Repository 09/06/2018/ [id number] Ambulatory BMSBuilding:B [place] 0 [facility] Repository 07/27/2018/ [id number] Ambulatory BMSBuilding:B [place] 8 5 [facility] Repository 07/19/2018 [id number] Ambulatory [place] 1 [facility] ing:LAB Repository 07/13/2018 [id number] Ambulatory [place] 8 [facility] ing:PAVLAB Repository 07/13/2018/ [id number] Ambulatory BMSBuilding:B [place] 8 3 [facility] Repository 05/13/2018 [id number] Ambulatory BMSBuilding:B [place] 9 [facility] Repository 05/12/2018 [id number] Ambulatory [place] 9 [facility] ing:OPUS Repository 04/15/2018/ [id number] Ambulatory BMSBuilding:B [place] 8 [facility] Repository 04/02/2018/ [id number] DR DEEPAK Emergency Buildin[address] [place] [address] ALICE hicksom: ERBed: [facility] Repository 04/02/2018 [id number] Ambulatory [place] 6 [facility] Repository 03/25/2018/ [id number] Ambulatory BMSBuilding:B [place] 7 [facility] Repository 02/22/2018 [id number] Ambulatory [place] 3 [facility] ing:US Repository 02/15/2018 [id number] Ambulatory [place] 9 [facility] ing:LABSPEC Repository 02/15/2018 [id number] Ambulatory [place] 2 [facility] ing:LAB Repository 02/15/2018/ [id number] Ambulatory BMSBuilding:B [place] 8 9 [facility] Repository PAYERS PAYERS ENCOUNTER GUARANTOR PAYER SUBSCRIBER SOURCE 09/26/2018 LACREEDA A Primary LACREEDA A [place] [id number] [facility] DRAPT licy Number: [id number] [id number] Repository [address]Ufj: (740) Date:2018-07-14 [phone] (HR) 5348ATTN: [place] [address]FL: 09/26/2018 Secondary NOT GIVENUNK [place] Insurance:SELF PAY [facility] Number: Effective Repository Date:2018-07-14 09/26/2018 LACREEDA A Primary [place] [id number] [facility] DRAPT licy Number: [id number] [id number] Repository [address]Ypn: (810) Date:2018-07-14 [phone] (HP) 8730ATTN: [place] [address]SO: 09/26/2018 Secondary NOT GIVENUNK [place] Insurance:SELF PAY [facility] Number: Effective Repository Date:2018-09-26 09/26/2018 LACREEDA A Primary [place] A [place] [id number] Insurance:CARESOURCEPo WALTOSDOB: Community [facility] [address] licy Number: [id number] [id number] Repository [address]Wpf: (990) Date:2018-07-14 [phone] (HP) 8730ATTN: [place] [address]EJ: 09/26/2018 Secondary NOT GIVENUNK [place] Insurance:SELF PAY [facility] Number: Effective Repository Date:2018-09-26 09/26/2018 LACREEDA A Primary [place] [id number] Insurance:CARESOURCEPo WALTOSDOB: Community [employer] [address] licy Number: [id number] [id number] Repository [address]Njv: (750) Date:2018-07-14 [phone] () 8730ATTN: [place] [address]CQ: 09/26/2018 Secondary NOT GIVENUNK [place] Insurance:SELF PAY [facility] Number: Effective Repository Date:2018-09-26 09/22/2018 LACREEDA A Primary [place] [id number] Insurance:CARESOURCEPo WALTOSDOB: Community [address] [address] licy Number: [id number] [id number] Repository [address]Etu: ([phone]) Date:2018-07-13P [phone] (HP) 8730ATTN: [place] [address]GZ: 09/22/2018 Secondary NOT GIVENUNK [place] Insurance:SELF PAY [facility] Number: Effective Repository Date:2018-09-22 09/15/2018 LACREEDA A Primary [place] [id number] Insurance:CARESOURCEPo WALTOSDOB: Community [address] [address] licy Number: [id number] [id number] Repository [address]Alz: ([phone]) Date:2018-09-07 [phone] (HP) 8730ATTN: [place] [address]YP: 09/15/2018 Secondary NOT GIVENUNK [place] Insurance:SELF PAY [facility] Number: Effective Repository Date:2018-09-07 09/13/2018 LACREEDA A Primary [place] A [place] [id number] Insurance:CARESOURCEPo WALTOSDOB: Community [address] [address] licy Number: [id number] [id number] Repository [address]Njg: (740) Date:2018-07-13 [phone] (HP) 8730ATTN: [place] [address]KI: 09/13/2018 Secondary NOT GIVENUNK [place] Insurance:SELF PAY [facility] Number: Effective Repository Date:2018-09-13 09/06/2018 LACREEDA A Primary [place] [id number] Insurance:CARESOURCEPo WALTOSDOB: Community [address] [address] licy Number: [id number] [id number] Repository [address]Zet: (500) Date:2018-09-06 [phone] (HP) 5130ATTN: [place] [address]WW: 09/06/2018 Secondary NOT GIVENUNK [place] Insurance:SELF PAY [facility] Number: Effective Repository Date:2018-09-06 09/06/2018 LACREEDA A Primary LACRE[place] A [place] [id number] Insurance:CARESOURCEPo WALTOSDOB: Community [address] [address] licy Number: [id number] [id number] Repository [address]Inz: (460) Date:2018-07-13 [phone] () 8730ATTN: [place] [address]YW: 09/06/2018 Secondary NOT GIVENUNK [place] Insurance:SELF PAY [facility] Number: Effective Repository Date:2018-09-06 07/27/2018 LACREEDA A Primary LACREEDA A [place] [id number] Insurance:CARESOURCEPo WALTOSDOB: Community [address] licy Number: [id number] [id number] Repository [address]Meq: ([phone]) Date:2018-07-13P [phone] () 8730ATTN: [place] [address]JQ: 07/27/2018 Secondary NOT GIVENUNK [place] Insurance:SELF PAY [facility] Number: Effective Repository Date:2018-07-27 07/19/2018 LACREEDA A Primary [place] A [place] [id number] Insurance:CARESOURCEPo WALTOSDOB: Community [address] licy Number: [id number] [id number] Repository [address]Qch: (620) Date:2018-07-14P [phone] () 8730ATTN: [place] [address]GG: 07/19/2018 Secondary NOT GIVENUNK [place] Insurance:SELF PAY [facility] Number: Effective Repository Date:2018-07-14 07/13/2018 LACREEDA A Primary LACRE[place] A [place] [id number] Insurance:CARESOURCEPo WALTOSDOB: Community [address] licy Number: [id number] [id number] Repository [address]Lvs: (350) Date:2018-07-13 [phone] (HP) 8730ATTN: [place] [address]FY: 07/13/2018 Secondary NOT GIVENUNK [place] Insurance:SELF PAY [facility] Number: Effective Repository Date:2018-07-13 07/13/2018 LACREEDA A Primary [place]CRE[place] A [place] [id number] Insurance:CARESOURCEPo WALTOSDOB: Community [address] [address] licy Number: [id number] [id number] Repository [address]Uto: ([phone]) Date:2018P [phone] (HP) 8730ATTN: [place] [address]AU: 07/13/2018 Secondary NOT GIVENUNK [place] Insurance:SELF PAY [facility] Number: Effective Repository Date:2018-07-13 05/13/2018 LACREEDA A Primary LACREEDA A [place] [id number] Insurance:CARESOURCEPo WALTOSDOB: Community [address] licy Number: [id number] [id number] Repository [address]Ydf: (790) Date:2018-02-15P [phone] (HP) 8730ATTN: [place] [address]UL: 05/13/2018 Secondary NOT GIVENUNK [place] Insurance:SELF PAY [facility] Number: Effective Repository Date:2018-02-15 05/12/2018 LACREEDA A Primary [place] A [place] [id number] Insurance:CARESOURCEPo WALTOSDOB: Community [address] [address] licy Number: [id number] [id number] Repository [address]Yro: (720) Date:2018-04-18P [phone] (HP) 8730ATTN: [place] [address]OF: 05/12/2018 Secondary NOT GIVENUNK [place] Insurance:SELF PAY [facility] Number: Effective Repository Date:2018-04-18 2018 LACREEDA A Primary [place] A [place] [id number] Insurance:CARESOURCEPo WALTOSDOB: [facility] [address]ATHERINE [address]AP[address] licy Number: [id number] [id number] Repository [address]Gku: (740) Date:2018-02-15P [phone] (HP) 8730ATTN: [place] [address]SI: 2018 Secondary NOT GIVENUNK [place] Insurance:SELF PAY [facility] Number: Effective Repository Date:2018-02-24 04/02/2018 LACREEDA A Primary Lacreeda C Alexandro Winter WALTOSDOB: Insurance:CARESOURCE WaltosDOB: [facility] [id number] Hospital CATHERINE MCCLELLAN Number: CATHERINE MCCLELLAN Repository [address] [place] [address], [id number] [address] [place] [address] Date:Plan Name:[id number] O [id number]: [address] [place] [address] [phone]: [phone] () [phone] 04/02/2018 LACREEDA A Primary LACREEDA A [place] [id number] Insurance:CARESOURCEPo WALTOSDOB: [facility] MARLYNFREDDY [address]APT licy Number: [id number] [id number] Repository [address]Hqu: ([phone]) Date:2018-04-02P [phone] (HP) 8730ATTN: [place] [address]HR: 04/02/2018 Secondary NOT GIVENUNK [place] Insurance:SELF PAY [facility] Number: Effective Repository Date:2018-04-02 03/25/2018 LACREEDA A Primary [place]CRE[place] A [place] [id number] Insurance:CARESOURCEPo WALTOSDOB: [facility] [address]LY[address]APT licy Number: [id number] [id number] Repository [address]Gat: ([phone]) Date:2018-02-15 [phone] (HP) 8730ATTN: [place] [address]AK: 03/25/2018 Secondary NOT GIVENUNK [place] Insurance:SELF PAY [facility] Number: Effective Repository Date:2018-03-25 02/22/2018 LACREEDA A Primary [place] [id number] Insurance:CARESOURCEPo WALTOSDOB: Community [address] licy Number: [id number] [id number] Repository [address]Xhe: ([phone]) Date:2018-02-15P [phone] (HP) [address]30ATTN: [place] [address]YS: 02/22/2018 Secondary NOT GIVENUNK [place] Insurance:SELF PAY [facility] Number: Effective Repository Date:2018-02-15 02/15/2018 LACREEDA A Primary [place] A [place] [id number] Insurance:CARESOURCEPo WALTOSDOB: Community [address] licy Number: [id number] [id number] Repository [address]Xzp: (760) Date:2018-02-15 [phone] (HP) 8730ATTN: [place] [address]LI: 02/15/2018 Secondary NOT GIVENUNK [place] Insurance:SELF PAY [facility] Number: Effective Repository Date:2018-02-15 02/15/2018 LACREEDA A Primary [place] A [place] [id number] Insurance:CARESOURCEPo WALTOSDOB: Community [address] licy Number: [id number] [id number] Repository [address]Lha: (960) Date:2018-02-15 [phone] (HP) 8730ATTN: [place] [address]VN: 02/15/2018 Secondary NOT GIVENUNK [place] Insurance:SELF PAY [facility] Number: Effective Repository Date:2018-02-15 02/15/2018 LACREEDA Primary LACRE[place]A [place] [id number] Insurance:CARESOURCPATITOo MARTHAOB: Community [address] licy Number: [id number] [id number] Repository [address]Tlp: [phone]) Date:2018-02-08 [phone] () 7273ATTN: [place] [address]EY: 02/15/2018 Secondary NOT GIVENUNK [place] Insurance:SELF PAY [facility] Number: Effective Repository Date:2018-02-15
== END ==
PROVIDERS: Referring Provider Obstetrics & Gynecology; Visit Provider Obstetrics & Gynecology
DX: Z34.90 Encounter for supervision of normal pregnancy, unspecified, unspecified trimester (principal); O09.91 Supervision of high risk pregnancy, unspecified, first trimester; Z3A.00 Weeks of gestation of pregnancy not specified
CPT/HCPCS: 36415; 85025; 87081

== ENCOUNTER → 2018-09-15 08:39 | Outpatient (CLI) | payer MEDICAID, SELFPAY ==
[2018-09-06 11:23] VITALS: BMI 36.3
[2018-09-13 10:26] VITALS: BMI 35.9
--- NOTE | 2018-09-15 08:40 | US_ITS ---
STUDY: SECOND AND THIRD TRIMESTER OBSTETRICAL ULTRASOUND - LIMITED REASON FOR EXAM: Female, 33 years old. Routine survey. LMP: December 26, 2017. PRIOR ULTRASOUND: Comparison is made with prior study dated May 12, 2018. TECHNIQUE: Transabdominal TECHNICAL QUALITY: Adequate. FINDINGS: There is a single intrauterine fetus. The fetus is in a cephalic presentation. There is demonstrated cardiac activity with a heart rate of 152 bpm. There is a normal amniotic fluid volume. The largest amniotic fluid pocket measures 5.1 cm x 5.6 cm. The amniotic fluid index (JOSE ANTONIO) is 13.3 cm. The placenta is fundal in location. There are Grade 3 placental changes. The cervix is not well visualized due to the position of the head. BIOMETRY: BPD: 8.81 cm: 35 weeks, 5 days HC: 32.47 cm: 36 weeks, 6 days AC: 36.11 cm: 4 weeks, 1 days FL: 7.32 cm: 37 weeks, 4 days Age by LMP: 37 weeks, 4 days. ZULY by LMP: October 02, 2018. age by prior US: 38 weeks, 2 days. ZULY by prior US: September 27, 2018. age by current US: 37 weeks, 4 days. ZULY by current US: Arnaud 2018. Estimated weight: 3515 grams, +/- 573 grams, 82 percentile. Gender: Male US/OB Limited With Biometrics IMPRESSION: Single live intrauterine gestation with a mean gestational age of 38 weeks and 2 days. The measurements obtained today following the normal expected range. The abdominal circumference is large. Electronically Signed: Kishore Hayes MD at 9:44 EST Tel [phone], Service support ,
== END ==
PROVIDERS: Referring Provider Obstetrics & Gynecology; Visit Provider Obstetrics & Gynecology
DX: O36.5990 Maternal care for other known or suspected poor fetal growth, unspecified trimester, not applicable or unspecified (principal); Z3A.00 Weeks of gestation of pregnancy not specified
CPT/HCPCS: 76816

== ENCOUNTER 2018-09-26 05:33 | Inpatient (IN) | payer MEDICAID, SELFPAY ==
[2018-09-22 13:46] VITALS: BMI 36.3
[2018-09-22 15:16] VITALS: BMI 32.7
[2018-09-26] VITALS (26 sets, daily range): BP systolic 103–139; BP diastolic 65–93; PULSE 63–88; RESP 16–18; TEMP 36.1–36.6; O2SAT 96–100
[2018-09-26] MEDS: Lactated Ringers 1,000 ML 999 ML IV (06:20)
[2018-09-26 06:41] LABS: Hematocrit 34.3 % (37-47); Mean Corp Hgb Conc 32.1 g/gl (32-36); Mean Corpuscular Hgb 28.1 pg (27.0-32.0); Mean Corpuscular Volume 87.5 fL (81-99); Mean Platelet Vol. 9.7 fl (6.2-12.0); Platelet Count 222 K/mm3 (150-450); RBC Distribution Width CV 13.9 % (11.6-14.6); RBC Distribution Width SD 42.2 fl (35.1-43.9); Red Blood Count 3.92 M/mm3 (4.2-5.4); Scan Indicated on CBC? Y/N NO
[2018-09-26] MEDS: Sodium Citrate/Citric Acid 30 ML UDC PO (07:10)
[2018-09-26] MEDS: Lactated Ringers 1,000 ML 150 ML IV (07:20)
[2018-09-26] MEDS: Cefazolin 2 GM in 0.9% Normal Saline 100 ML IV (07:25)
--- NOTE | 2018-09-26 07:54 | FALS_PTH ---
PATIENT: ANKIT MEJIA LOC: [facility] U#:[id number] AGE/SX: 33/F ROOM: WP009 RE09/26/[address]: Dr. Mya Meléndez MD : 1985 BED: 1 DIS: 09/28/2018 SPEC #: [id number] RECD: 09/26/18 10:08 STATUS: VANESA FLORENCE #: [id number] DES: 09/26/18 07:[address]: Mya Meléndez DEPT: SURGICAL PATHOLOGY RECD BY: Deandre Oropeza ENTERED: 09/26/18 11:55 SP TYPE: FALL TUBES OTHR DR: Marcia Primary Care Phys Tissues: Fallopian tube Procedures: Surgery Specimen Level II HEADER OPERATION: Tubal ligation PRE-OP DIAGNOSIS: Desired sterilization TISSUE SUBMITTED: Fallopian tube, stitch in left tube MICROSCOPIC DIAGNOSIS Right and left fallopian tubes, bilateral salpingectomies: Two complete segments of fallopian tubes with no pathologic change. AM:ida 09/28/18 MICROSCOPIC DESCRIPTION Slides are reviewed. GROSS DESCRIPTION Received is one container labeled with the patient's name and designated bilateral fallopian tubes, left with suture. The specimen consists of two fallopian tubes with an average length of 3.5 cm and has an average diameter of 0.6 cm. Both fallopian tubes have normal fimbriated ends. No mass lesions are identified. The fallopian tubes are totally submitted in two cassettes as follows: 1 - right fallopian tube, 2 - left fallopian tube. / AM:ida 09/26/18 TC:4 CPT: 69614 x2
[2018-09-26] MEDS: Oxytocin 30 units/NS 500 ml 30 UNITS/500 ML IV.SOLN 167 UNITS IV (07:55)
--- NOTE | 2018-09-26 09:19 | HP.PCM_ITS ---
- Problem List (1) Anemia during in second trimester Status: Acute Comment: iron, check cbc monthly (2) Abnormal glucose affecting Status: Acute Comment: 3 hr GTT normal (3) Atypical squamous cell changes of undetermined significance (ASCUS) on cervical cytology with positive high risk human papilloma virus (HPV) Status: Acute Comment: pap PP (4) History of labor Status: Acute Comment: Progesterone injections in . (5) Supervision of high risk in first trimester Status: Acute Comment: PRR Grav 6/5 ZULY 10/02/18. PC: Obey Todd, Yari, Omar, Tsering. FOB: Otilio. (is , getting ) Repeat US FU in 4 weeks due to body habitus. (6) screening encounter Status: Acute Comment: Referral to [facility] for NT (7) Rh negative state in antepartum period Status: Acute Comment: rhogam given at 28 weeks (8) History of Status: Acute Comment: Plans repeat CS with BTO 09/26/18 History Date of Admission: 09/26/18 Final ZULY: 10/02/18 Gestational age: 39 Weeks and 1 Days History of this : This is a 33 year-old, at 39 weeks gestational age for repeat c section and BTL. Surgical History: Surgical History (Last Reviewed 09/22/18 @ 13:45 by Екатерина Barroso) S/P Z98.891 x4 S/P cholecystectomy Z90.49 Allergies No Known Allergies Allergy (Verified 09/26/18 07:40) Home Medications: Home Medications Ferrous Sulfate 325 mg PO QDAY 09/22/18 [id number] fum 28 mg iron-folate no.6 1 mg-dha 300 mg capsule 1 cap PO .daily 09/22/18 Smoking Status: Never smoker Alcohol: None Number of Fetus(es): 1 Heart Tracin History Past Pregnancies: Past PregnanciesPregancy History 6 Elective abortions Hx Para 5 Spontaneous abortions Hx # Term Pregnancies Ectopic pregnancies Hx # Pregnancies Multiple births # of living children Past Pregnancies Del. Date Name GA/Weeks Outcome Route Bth Weight Gen Labor Lgth Anesthesia Del Locatn Provider FOB 09/08/06 Odin 33 live - Female FLA 10/27/07 Obey 38 live - full term [facility] 08/24/12 [facility] 38 live - full term [facility] 08/18/13 Omar 38 live - full term [facility] 08/12/15 Tsering 38 live - full term [facility] Labs: Mom's Labs & Results 09/26/18 09/26/18 06:20 06:20 WBC 8.0 RBC 3.92 L Hgb 11.0 L Hct 34.3 L MCV 87.5 MCH 28.1 MCHC 32.1 RDW 13.9 RDW Differential 42.2 Plt Count 222 MPV 9.7 Blood Type O NEGATIVE Antibody Screen NEGATIVE Course Did the patient receive Yes care? Labs Blood Type: O RH: NEGATIVE RPR/VDRL/Syphilis Nonreactive Rubella status Immune HbSAg Negative Date Done: 02/15/18 Chlamydia Negative Gonorrhea Negative HIV/AIDS Non-Reactive Group B Strep: Not Done Current Obstetrical History Gestational Diabetes No Incompetent Cervix No Infertility No IUGR No Macrosomia No Hypertension/Pre-eclampsia No Placenta Previa/Abruption No PTL/PROM No Uterine anomaly No Oligohydramnios No Polyhydramnios No Multiple gestation No Past Medical History Asthma No Diabetes No Hypertension No Heart disease No Mitral valve prolapse No Neurologic/Seizure disorder/ No Migraines Kidney disease No Liver disease No Varicosities No Clotting disorders/Hx of DVT No Thyroid Dysfunction No Other medical diseases No Psychiatric disorders No Major trauma No Abnormal PAP smear No Sleep apnea No Mammogram in the last 2 years No Social History Marital Status: Alleged father otilio olmos Hx Smoking No Smoking Status Never smoker Expected Infant Delivery Method: Scheduled Section, Repeat Section Describe any other labor & delivery plans:: btl Review of Systems Constitutional: Denies: Fever, Malaise Eyes: Denies: Blurred vision, Vision Change HEENT: Denies: Head Aches, Visual Changes Cardiovascular: Denies: Chest Pain, Palpitations Respiratory: Denies: Cough, Shortness of Breath, Wheezing Gastrointestinal: Denies: Abdominal Pain, Diarrhea, Nausea, Vomiting Genitourinary: Denies: Dysuria, Hematuria Musculoskeletal: Denies: Joint Pain, Muscle pain Skin: Denies: Lesions, Rash Neurological: Denies: Blurred vision, Focal weakness, Headaches Psychiatric: Denies: Anxiety, Depression Endocrine: Denies: Heat/ Cold Intolerance Hematologic/ Lymphatic: Denies: Easy Bruising, Easy Bleeding Physical Exam Vitals: Vital Signs Temp Pulse Resp BP Pulse Ox 97.0 F L 87 16 117/75 97 09/26/18 08:50 09/26/18 09:08 09/26/18 09:08 09/26/18 09:08 09/26/18 09:08 General: Alert, Cooperative, No apparent distress HEENT: Atraumatic, Normocephalic. Negative for: Thyromegaly, Lymphadenopathy Cardiovascular: Regular rate Lungs: Normal air movement Abdomen: Soft, Non Tender, Gravid Neurological: Deep Tendon Reflexes 2+/4 and Symmetrical, Neuro grossly intact. Negative for: Clonus OSTEOPATHIC RESIDENT: Normal external genitalia. Negative for: Vulvar lesions Estimated gestational size: Appropriate for gestational size Presentation: Cephalic Assessment/Plan All Active Problems (Last Reviewed 09/22/18 @ 13:45 by Екатерина Barroso) Anemia during in second trimester (Acute) Abnormal glucose affecting (Acute) Atypical squamous cell changes of undetermined significance (ASCUS) on cervical cytology with positive high risk human papilloma virus (HPV) (Acute) History of labor (Acute) Supervision of high risk in first trimester (Acute) screening encounter (Acute) Rh negative state in antepartum period (Acute) History of (Acute) This is a 33 year-old, at 39 weeks gestational age. plant RLTCS and BTL rhogam PRN
--- NOTE | 2018-09-26 09:24 | OP.PCM_ITS ---
Problem List (1) Anemia during in second trimester Status: Acute Comment: iron, check cbc monthly (2) Abnormal glucose affecting Status: Acute Comment: 3 hr GTT normal (3) Atypical squamous cell changes of undetermined significance (ASCUS) on cervical cytology with positive high risk human papilloma virus (HPV) Status: Acute Comment: pap PP (4) History of labor Status: Acute Comment: Progesterone injections in . (5) Supervision of high risk in first trimester Status: Acute Comment: PRR Grav 6/5 ZULY 10/02/18. PC: Obey Todd Zofia, Vincent, Karolina. FOB: Bonilla. (is , getting ) Repeat US FU in 4 weeks due to body habitus. (6) screening encounter Status: Acute Comment: Referral to [facility] for NT (7) Rh negative state in antepartum period Status: Acute Comment: rhogam given at 28 weeks (8) History of Status: Acute Comment: Plans repeat CS with BTO 09/26/18 Report of Operation Date of Procedure: 09/26/18 Pre-Operative Diagnosis: previuos Post-Operative Diagnosis: same Surgery/Procedure Performed:: RLTCS BTL Description of Surgical Findings:: moderate scar tissue vesicouterine hot die press feeder: Lorie Hartman Type of Anesthesia:: Spinal Special Medications: none Specimen's removed: male infant Drains: turner Estimated Blood Loss (mL): 600 Fluids Replaced: crystalloid Description of Procedure: The patient is a with 4 previous cesareans presented for repeat . Spinal anesthesia was placed without difficulty. Turner catheter was placed. The patient was placed in the dorsal supine position with leftward tilt. Patient was prepped and draped in the normal sterile fashion. Pfannenstiel skin incision was made with the scalpel and carried through to the underlying layer of fascia with the scalpel. Fascia was nicked in the midline and the incision extended laterally. The rectus bellies were dissected off superiorly and inferiorly with out complication both sharply and bluntly. The peritoneum was entered digitally. The incision was stretched and a low transverse uterine incision was made with the scalpel. The infant's head was delivered atraumatically followed by the anterior and posterior shoulders without complication the rest of the delivered. The cord was clamped and cut and the infant was handed off to awaiting nurse. The placenta was delivered spontaneously immediately following and was noted to be intact and have a three- vessel cord. The uterus was exteriorized cleared of all clots and debris, and the incision was closed in a double layer closure using #1 Monocryl. The uterus was returned to the maternal abdomen and gutters were cleared of all clots and debris. The ovaries and fallopian tubes were noted to be within normal limits. The peritoneum was closed with 3-0 Monocryl in a running fashion. Fascia was c losed with 0 PDS in a running fashion. Subcutaneous tissue was copiously irrigated and the skin was closed with 3-0 Monocryl in a subcuticular fashion. Steri-Strips and Mepilex dressing were applied without complication. Patient was taken to recovery in stable condition. Grafts/Implants Used: none - Complications none - Admit VTE Documentation VTE Present on Admission: No VTE Mechan Device Prophylaxis: SCD's
[2018-09-26 10:07] LABS: Pathology Specimen OB SEE PATHOLOGY REPORT
[2018-09-26] MEDS: Ketorolac 30 MG/ML Syringe IV ×2 (12:55→18:57)
[2018-09-26] MEDS: Lactated Ringers 1,000 ML 100 ML IV (15:28)
--- NOTE | 2018-09-26 18:25 | NURSING ---
Pump given to Mom per her insurance approval. Instructions given. Karin RICHARDSON
[2018-09-27] VITALS (8 sets, daily range): BP systolic 120–130; BP diastolic 81–93; PULSE 72–92; RESP 16–18; TEMP 36.2–36.7; O2SAT 96–99
[2018-09-27] MEDS: Ketorolac 30 MG/ML Syringe IV ×4 (00:11→18:10)
[2018-09-27] MEDS: oxyCODONE 5 MG Tablet PO ×2 (08:15→20:42)
[2018-09-27] MEDS: Senna/Docusate Sodium 1 Tablet PO (08:16)
[2018-09-27 08:22] LABS: Hematocrit 27.3 % (37-47); Hemoglobin 8.7 g/dl (12.0-15.0); Mean Corp Hgb Conc 31.9 g/gl (32-36); Mean Corpuscular Hgb 27.6 pg (27.0-32.0); Mean Corpuscular Volume 86.7 fL (81-99); Mean Platelet Vol. 9.2 fl (6.2-12.0); Platelet Count 178 K/mm3 (150-450); RBC Distribution Width SD 43.5 fl (35.1-43.9); Red Blood Count 3.15 M/mm3 (4.2-5.4); White Blood Count 6.5 K/mm3 (4.4-11.0)
[2018-09-27 08:23] LABS: Scan Indicated on CBC? Y/N NO
--- NOTE | 2018-09-27 11:33 | PCM.PN.OB ---
Subjective: doing well no complaints pain controlled - Physical Exam General: Alert, Oriented x3 Vital Signs Temp Pulse Resp BP Pulse Ox 97.4 F L 77 16 130/88 H 97 09/27/18 08:20 09/27/18 08:20 09/27/18 08:20 09/27/18 08:20 09/27/18 08:20 Oxygen Delivery Method Room Air Weight: 202 lb 9.677 oz Body Mass Index (BMI) 32.7 Intake and Output for Last 24 Hours 09/25/18 09/26/18 09/27/18 23:59 23:59 23:59 Intake Total 1731 / 1731 1520 / 1520 Output Total 550 / 550 2250 / 2250 Balance 1181 / 1181 -730 / -730 Laboratory Tests Past 24 Hrs 09/27/18 07:45 WBC 6.5 RBC 3.15 L Hgb 8.7 L Hct 27.3 L MCV 86.7 MCH 27.6 MCHC 31.9 L RDW 14.0 RDW Differential 43.5 Plt Count 178 MPV 9.2 Medical Necessity - Tobacco Use Smoking Status: Never smoker Assessment/Plan All Active Problems (Last Reviewed 09/22/18 @ 13:45 by Екатерина Barroso) Anemia during in second trimester (Acute) Abnormal glucose affecting (Acute) Atypical squamous cell changes of undetermined significance (ASCUS) on cervical cytology with positive high risk human papilloma virus (HPV) (Acute) History of labor (Acute) Supervision of high risk in first trimester (Acute) screening encounter (Acute) Rh negative state in antepartum period (Acute) History of (Acute) s/p LTCS PPD # 1 1. routine post care 2. breast feeding- support given 3. rh negative- rhogam PRN 4. rubella immune
[2018-09-27] MEDS: 0.9% Saline Lock 10 ML Syringe IV ×2 (12:15→18:10)
[2018-09-27] MEDS: Acetaminophen 500 MG Tablet 1000 MG PO (19:38)
[2018-09-28] MEDS: 0.9% Saline Lock 10 ML Syringe IV ×2 (00:26→06:01)
[2018-09-28] MEDS: Ketorolac 30 MG/ML Syringe IV ×2 (00:26→06:01)
[2018-09-28 01:50] VITALS: BP 129/91; PULSE 73; RESP 18; TEMP 36.8; O2SAT 98
[2018-09-28] MEDS: oxyCODONE 5 MG Tablet PO (05:03)
--- NOTE | 2018-09-28 08:01 | PCM.PN.OB ---
Subjective: Doing well. No CP, SOB. Plans home today. - Physical Exam General: Alert, Oriented x3 Abdomen: Soft, Non-Distended, - - FF below U. Dressing dry and intact. Vital Signs Temp Pulse Resp BP Pulse Ox 98.2 F 73 18 129/91 H 98 09/28/18 01:50 09/28/18 01:50 09/28/18 01:50 09/28/18 01:50 09/28/18 01:50 Oxygen Delivery Method Room Air Weight: 202 lb 9.677 oz Body Mass Index (BMI) 32.7 Intake and Output for Last 24 Hours 09/26/18 09/27/18 09/28/18 23:59 23:59 23:59 Intake Total 1731 / 1731 1520 / 1520 Output Total 550 / 550 2250 / 2250 Balance 1181 / 1181 -730 / -730 Laboratory Tests Past 24 Hrs 09/27/18 07:45 WBC 6.5 RBC 3.15 L Hgb 8.7 L Hct 27.3 L MCV 86.7 MCH 27.6 MCHC 31.9 L RDW 14.0 RDW Differential 43.5 Plt Count 178 MPV 9.2 Medical Necessity - Tobacco Use Smoking Status: Never smoker Assessment/Plan All Active Problems (Last Reviewed 09/22/18 @ 13:45 by Екатерина Barroso) Anemia during in second trimester (Acute) Abnormal glucose affecting (Acute) Atypical squamous cell changes of undetermined significance (ASCUS) on cervical cytology with positive high risk human papilloma virus (HPV) (Acute) History of labor (Acute) Supervision of high risk in first trimester (Acute) screening encounter (Acute) Rh negative state in antepartum period (Acute) History of (Acute) LTRCS BTO POD#2:Routine care. Plans home today.
--- NOTE | 2018-09-28 08:04 | PCM.DCCSEC ---
Additional Instructions: If you experience any of the following, contact your healthcare provider. Bleeding that soaks a pad every hour for 2 hours Fever 100.4 or higher Unrelieved incision or abdominal pain Swelling, redness, discharge or bleeding from your incision or episiotomy site Your incision begins to separate Problems urinating (including inability to urinate or burning while urinating). Visual changes Severe headache Flu-like symptoms Pain or redness in one of both of your breasts Pain, warmth, tenderness or swelling in your legs, especially the calf area Frequent nausea and vomiting Symptoms of depression or anxiety If you experience any of the following, call 911 or go to the nearest Emergency Room. Chest pain Problems breathing Seizure activity Partial or complete paralysis of a body part, slurred speech, weakness or drooping of the face, or a sudden inability to walk or hold your balance Allergies/Adverse Reactions: Allergies No Known Allergies Allergy (Verified 09/26/18 07:40) Medications to take at Discharge Ferrous Sulfate 325 mg PO QDAY 09/22/18 [id number] fum 28 mg iron-folate no.6 1 mg-dha 300 mg capsule 1 cap PO .daily 09/22/18 Naproxen [Naprosyn] 500 mg PO BID PRN PRN #60 tablet 09/28/18 Oxycodone HCl/Acetaminophen [Percocet 5/325] 1 - 2 tablet PO Q4H PRN PRN 3 Days #15 tablet 09/28/18 The following prescriptions were given: Oxycodone HCl/Acetaminophen [Percocet 5/325] 1 - 2 tablet PO Q4H PRN PRN 3 Days #15 tablet PRN Reason: Pain Naproxen [Naprosyn] 500 mg PO BID PRN PRN #60 tablet PRN Reason: Pain Follow-Up: Call to make an appointment with your doctor for an incision check in 1-2 weeks. You will also need a 6 week post- follow up appointment. Test results from this visit will be discussed in further detail at your follow-up appointment, if applicable. Primary Care Physician: Care Physician,No Primary [Primary Care Provider] -
--- NOTE | 2018-09-28 08:05 | DCINST_ITS ---
Additional Instructions: If you experience any of the following, contact your healthcare provider. * Bleeding that soaks a pad every hour for 2 hours * Fever 100.4 or higher * Unrelieved incision or abdominal pain * Swelling, redness, discharge or bleeding from your incision or episiotomy site * Your incision begins to separate * Problems urinating (including inability to urinate or burning while urinating). * Visual changes * Severe headache * Flu-like symptoms * Pain or redness in one of both of your breasts * Pain, warmth, tenderness or swelling in your legs, especially the calf area * Frequent nausea and vomiting * Symptoms of depression or anxiety If you experience any of the following, call 911 or go to the nearest Emergency Room. * Chest pain * Problems breathing * Seizure activity * Partial or complete paralysis of a body part, slurred speech, weakness or drooping of the face, or a sudden inability to walk or hold your balance Allergies/Adverse Reactions: Allergies No Known Allergies Allergy (Verified 09/26/18 07:40) Medications to take at Discharge Ferrous Sulfate 325 mg PO QDAY 09/22/18 [id number] fum 28 mg iron-folate no.6 1 mg-dha 300 mg capsule 1 cap PO .daily 09/22/18 Naproxen [Naprosyn] 500 mg PO BID PRN PRN #60 tablet 09/28/18 Oxycodone HCl/Acetaminophen [Percocet 5/325] 1 - 2 tablet PO Q4H PRN PRN 3 Days #15 tablet 09/28/18 The following prescriptions were given: Oxycodone HCl/Acetaminophen [Percocet 5/325] 1 - 2 tablet PO Q4H PRN PRN 3 Days #15 tablet PRN Reason: Pain Naproxen [Naprosyn] 500 mg PO BID PRN PRN #60 tablet PRN Reason: Pain Follow-Up: Call to make an appointment with your doctor for an incision check in 1-2 weeks. You will also need a 6 week post- follow up appointment. Test results from this visit will be discussed in further detail at your follow- up appointment, if applicable. Primary Care Physician: Care Physician,No Primary [Primary Care Provider] -
[2018-09-28 08:35] VITALS: BP 135/90; PULSE 75; RESP 16; TEMP 36.6
[2018-09-28] MEDS: Senna/Docusate Sodium 1 Tablet PO (11:17)
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
[2018-09-28 14:07] VITALS: BP 145/90; PULSE 91; RESP 20; TEMP 36.6
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
== END 2018-09-28 15:00 | disposition home or self-care (01) | DRG 540 ==
PROVIDERS: Admitting Provider Obstetrics & Gynecology; Referring Provider Obstetrics & Gynecology; Visit Provider Obstetrics & Gynecology
PROC: 10D00Z1 Extraction of Products of Conception, Low, Open Approach (ICD-10-PCS; CPT 59514; principal; 2018-09-26 07:15)
DX: O34.211 Maternal care for low transverse scar from previous cesarean delivery (principal); N85.8 Other specified noninflammatory disorders of uterus; Z3A.39 39 weeks gestation of pregnancy; Z37.0 Single live birth; O99.02 Anemia complicating childbirth; D50.9 Iron deficiency anemia, unspecified; Z30.2 Encounter for sterilization; O26.893 Other specified pregnancy related conditions, third trimester; Z67.91 Unspecified blood type, Rh negative
CPT/HCPCS: 36415; 85027; 86850; 86900; 88302; 99218; J7120; A4216; G0378; J2405

== ENCOUNTER 2023-08-30 19:53 | Emergency (ER) | payer OTHER, SELFPAY ==
[2023-08-30 19:53] VITALS: BP 144/95; PULSE 74; RESP 16; TEMP 36.3; O2SAT 99; BMI 29.2
--- NOTE | 2023-08-30 21:30 | RAD_ITS ---
INDICATION: PAIN EXAMINATION/TECHNIQUE: X-RAY - RIGHT XR Knee 4 VIEWS COMPARISON: FINDINGS: SOFT TISSUES: No soft tissue swelling or gas. No radiopaque foreign body. BONES/JOINTS: No acute fracture or subluxation.. Normal alignment. Preservation of the joint space.. No sclerotic or destructive changes observed. RAD/Knee 4 or More Views IMPRESSION: Negative. Electronically Signed: Jus Hall DO at 21:41 EST ,
[2023-08-30] MEDS: Ibuprofen 400 MG Tablet 800 MG PO (21:37)
--- NOTE | 2023-08-30 22:14 | ED.VIS.LOWEX ---
HPI History of Present Illness Chief Complaint: Lower Extremity Injury Narrative Narrative: 38-year-old female who denies significant past medical history presents with acute on chronic right knee pain. She states she had problems with her knee for years intermittently. She denies any recent trauma. Over the last 3 days she has had increasing right knee pain that is worse with weightbearing and walking and movement. She denies any chest pain or shortness of breath, no swelling or redness of her knee or leg. No recent trauma. PFSH PFSH Home Medications [] 1 cap PO .daily 09/22/18 [History Last Taken 09/25/18] ferrous sulfate 325 mg (65 mg iron) tablet,delayed release 325 mg PO QDAY anemia 09/22/18 [History Last Taken 09/25/18] naproxen 500 mg tablet 500 mg PO BID PRN PRN Pain #60 tabs 09/28/18 [Rx Last Taken Unknown] ibuprofen 800 mg tablet 800 mg PO Q8H PRN pain #20 tabs 08/30/23 [Rx Last Taken Unknown] Allergy/AdvReac Type Severity Reaction Status Date / Time No Known Allergies Allergy Verified 09/26/18 07:40 Surgical History S/P S/P cholecystectomy Social History Smoking Status: Never smoker alcohol intake: never substance use type: does not use caffeine: Yes what type of physical activity do you participate in: walking frequency: 5-6 times per week seatbelt use: always do you feel safe at home: Yes additional social history: () Patient is not working ROS ROS ED ROS Narrative Constitutional: No fever, no chills. HEENT: No sore throat. No neck pain. No loss of vision. No rhinorrhea. Cardiovascular: No chest pain. No palpitations. No pedal edema. Respiratory: No cough, no shortness of breath. Abdominal: No abdominal pain. No nausea. No vomiting. Genitourinary: No dysuria. No hematuria. Musculoskeletal: No myalgias. Right knee pain worse with movement, flexion, and extension. Also worse with weightbearing and walking. Neurologic: No headaches. No dizziness. No lightheadedness. Skin: No rash. No change in color. Psychiatric: No depression. No anxiety. EXAM Physical Exam Narrative Exam Narrative: Afebrile. Vital signs noted. HEENT: Normocephalic. Atraumatic. PERRL, EOMI. Neck soft and supple. No point tenderness or step off. Cardiovascular: Regular rate and rhythm. No murmurs, rubs, or gallops appreciated. Respiratory: No tachypnea. Lungs clear to auscultation bilaterally. Gastrointestinal: Abdomen soft, nontender, with normoactive bowel sounds. No rebound or guarding. Neurological: Awake. Alert. Nonfocal, nonlateralizing. Skin: No rash. Normal color. No pallor. Musculoskeletal: No pedal edema. Full range of motion extremities. Mild tenderness to palpation lateral and medial meniscal joint lines and along medial collateral and lateral collateral ligaments. No evidence of joint effusion. No erythema. Flexion and extension mechanisms intact. Palpable dorsalis pedis pulse, right. Const Vital Signs: 08/30/23 19:53 Temperature 97.3 F L Temperature Source Temporal Pulse Rate 74 Respiratory Rate 16 Blood Pressure 144/95 H Blood Pressure Mean 111 Pulse Ox 99 Oxygen Delivery Method Room Air MDM MDM MDM Narrative Medical decision making narrative: In the differential diagnosis is internal derangement of knee including meniscal tears versus ligamentous strains. I have low suspicion for fracture. I do not have suspicion for septic joint based on her clinical examination and that she is afebrile. She was given ibuprofen 800 mg here in the emergency department and x-rays were obtained of the right knee and 4 views interpreted by myself independently. There is no evidence of fracture or effusion. I reviewed the radiology report which confirms my independent interpretation. At this point in time, I feel she can be discharged safely home with follow-up to her primary care provider and/or orthopedics. She was written a prescription for ibuprofen, and she was placed in an Darrin wrap. I will give her a note to be off work at her request. She will follow-up with her primary care provider and was also referred to orthopedics.. Disposition is discharged home in stable condition. Radiography Diagnostic Testing: Clinical Impression(s) from Imaging Studies Knee X-Ray 08/30/23 21:30 IMPRESSION: Negative. Electronically Signed: Jus Hall DO at 21:41 EST Reading Location ID and State: [facility] / [place] Tel [phone], Service support , Discharge Plan Triage Chief Complaint: Lower Extremity Injury ED Provider: Tyree Funetes Dx/Rx/DC Orders Clinical Impression: Internal derangement of right knee, Knee pain, right Instructions: ED Knee Pain of Uncertain Cause Prescriptions: New ibuprofen 800 mg tablet 800 mg PO Q8H PRN (Reason: pain) Qty: 20 0RF No Action ferrous sulfate 325 MG tablet,delayed release (DR/EC) 325 mg PO QDAY [id number] fum 28 mg iron-folate no.6 1 mg-dha 300 mg capsule 28 mg iron-1 mg -300 mg capsule 1 cap PO .daily naproxen 500 MG tablet 500 mg PO BID PRN PRN (Reason: Pain) Qty: 60 1RF Primary Care Provider: Ana Dominguez Referrals: Matt Kelley MD [Med Staff - Active Staff] - 1 Week if not improving Ana Dominguez PA [Primary Care Provider] - 1 Week if not improving Activity Restrictions/Additional Instructions: Continue ice and elevation of your right knee at home. Follow-up with your primary care provider and/or orthopedics. Disposition Disposition: Home, Self Care
== END 2023-08-30 22:21 | disposition home or self-care (01) ==
PROVIDERS: Emergency Provider Emergency Medicine; Visit Provider Emergency Medicine
DX: M25.561 Pain in right knee (principal); M23.91 Unspecified internal derangement of right knee; Z90.49 Acquired absence of other specified parts of digestive tract
CPT/HCPCS: 73564; 99282

== ENCOUNTER 2023-09-08 16:50 | Emergency (ER) | payer OTHER, SELFPAY ==
[2023-09-08 16:50] VITALS: BP 152/102; PULSE 74; RESP 16; TEMP 36; O2SAT 100; BMI 29.7
--- NOTE | 2023-09-08 18:43 | CT_ITS ---
STUDY: CT BRAIN WITHOUT CONTRAST REASON FOR EXAM: Female, 38 years old. Right leg numbness RADIATION DOSAGE (If Supplied By Facility): CTDIvol = ( 44.99 ) mGy, DLP = ( 779.24 ) mGycm TECHNIQUE: Transaxial CT imaging of the brain was performed without administration of intravenous contrast material. Individualized dose optimization techniques were used for this CT. COMPARISON: No relevant priors. FINDINGS: Normal soft tissue structures. Normal calvarium. There is right temporomandibular arthrosis. Normal size ventricles and extra-axial spaces for the patient''s age. Normal white matter tracts of the cerebral hemispheres. Normal basal ganglia and thalami. Normal brainstem. Normal cerebellum. There is no intracranial hemorrhage. There are no findings of an acute ischemic infarction. Normal visualized paranasal sinuses. CT/Brain/Head without Contrast IMPRESSION: Normal unenhanced CT scan of the brain. Electronically Signed: Alejandro Brasher MD at 19:41 EST ,
--- NOTE | 2023-09-08 18:45 | RAD_ITS ---
STUDY: X-RAY - LUMBAR SPINE REASON FOR EXAM: Female, 38 years old. Pain TECHNIQUE: 3 view(s) of the lumbar spine were obtained. COMPARISON: None FINDINGS: Normal lumbar lordosis. There is no substantial scoliosis. There is grade 2 spondylolisthesis at L5-S1. There are bilateral pars interarticularis defects of L5. Normal vertebral bodies and endplates. There is disc space narrowing at L5-S1. There is no acute fracture. The soft tissue structures are unremarkable. RAD/Lumbar Spine 2 or 3 Views IMPRESSION: Spondylolisthesis with spondylolysis at L5-S1. Electronically Signed: Alejandro Brasher MD at 19:54 EST ,
[2023-09-08 19:12] LABS: Absolute Lymphocyte Count 2.08 X10^3/uL (0.83-4.51); Absolute Neutrophil Count 4.1 X10^3/uL (2.0-7.7); Basophil# 0.06 X10^3/uL; Basophil% 0.9 % (0-1); Eosinophil# 0.08 X10^3/uL; Eosinophils% 1.2 % (0-5); Hematocrit 38.6 % (37-47); Hemoglobin 12.3 g/dL (12.0-15.0); Lymphocyte # 2.08 X10^3/ul (0.83-4.51); Lymphocyte % 30.7 % (19-41); Mean Corp Hgb Conc 31.9 g/dL (32-36); Mean Corpuscular Hgb 27.5 pg (27.0-32.0); Mean Corpuscular Volume 86.4 fL (81-99); Mean Platelet Vol. 9.6 fl (6.2-12.0); Monocyte# 0.44 X10^3/uL; Monocyte% 6.5 % (0-10); NRBC Flagged by Analyzer 0 % (0-5); Neutrophil # 4.09 X10^3/uL (2.7-7.7); Neutrophil % 60.4 % (47-70); Platelet Count 259 K/mm3 (150-450); RBC Distribution Width SD 40.5 fl (35.1-43.9); Red Blood Count 4.47 M/mm3 (4.2-5.4); White Blood Count 6.8 K/mm3 (4.4-11.0)
[2023-09-08 19:20] LABS: Bacteria 0 SEEN /hpf (None Seen); Mucous, Urine 0 SEEN /hpf (<or=2+); Red Blood Cells-Urine 0 SEEN /hpf (0-5); White Blood Cells 0 SEEN /hpf (0-5)
[2023-09-08 19:21] LABS: Color, Urine Yellow (Yellow); Glucose, Dipstick Normal (Normal); Ketone-Dipstick Negative (Negative); Leukocyte Esterase-Dipstick Negative /ul (Negative); Nitrite-Dipstick Negative (Negative); Occult Blood-Urine Negative /ul (Negative); Protein-Dipstick Negative (Negative); Specific Gravity, Urine 1.015 (1.002-1.030); Urine Bilirubin Dipstick Negative (Negative); Urine Clarity Clear (Clear); Urine Urobilinogen Normal (Normal)
--- NOTE | 2023-09-08 19:22 | RAD_ITS ---
STUDY: X-RAY - PELVIS AND RIGHT HIP REASON FOR EXAM: Female, 38 years old. Pain TECHNIQUE: 3 views of the pelvis and hip. COMPARISON: None. FINDINGS: There is a normal bowel gas pattern. Normal visualized soft tissue structures. Normal bilateral iliac wings, sacroiliac joints and visualized sacrum. Normal bilateral superior and inferior pubic rami. Normal pubic symphysis. Normal bilateral ischial tuberosities. Normal visualized femoral head. Normal acetabulum. Normal hip joint. There is no acute fracture. RAD/HIP, UNI W/ Pelvis 2-3 Views IMPRESSION: Normal x-ray examination of the pelvis and hip. Electronically Signed: Alejandro Brasher MD at 19:50 EST ,
[2023-09-08 19:30] LABS: Internal QC Validated? YES +Cl - CLEAR BKGD; Pregnancy, Serum, hCG Quali. NEGATIVE Negative
[2023-09-08 19:31] LABS: ALB/GLOB Ratio 0.8 RATIO (0.9-2.4); AST(SGOT) 15 U/L (15-37); Alanine Aminotransfer ALT/SGPT 20 U/L (13-56); Albumin, Serum 3.5 g/dL (3.2-5.0); Alkaline Phosphatase 82 U/L (45-117); Anion Gap 2 (5-15); BUN 8 mg/dL (7-18); BUN/Creat Ratio 12.1 RATIO (10-20); Calcium,Total 9.3 mg/dL (8.5-10.1); Chloride 106 mmol/L (98-107); Creatinine, Serum 0.66 mg/dL (0.55-1.02); EST Glomerular Filtration Rate 107 mL/min (>60); Est Glom Filt Rate - Afr Amer 129 mL/min (>60); Estimated Creatinine Clearance 109.25 ml/min; Globulin 4.3 g/dL (2.2-4.2); Glucose 97 mg/dL (74-106); Magnesium 2.1 mg/dL (1.6-2.6); Protein, Total 7.8 g/dL (6.4-8.2); Sodium Level 138 mmol/L (136-145)
[2023-09-08 19:32] LABS: Squamous Epithelial Cells - UA 0-5 SEEN /hpf (5-10)
--- NOTE | 2023-09-08 19:51 | EX.ED.DYSGE1 ---
HPI History of Present Illness Chief Complaint: Numb/Ting Narrative Narrative: 38-year-old female who denies significant past medical history presents at the recommendation of her primary care provider for CT because of paresthesia of her right leg that she has had since Wednesday, 2 days ago. She states she fell last , but then began having paresthesia of her entire right leg from her hip to her toes on Wednesday, greater than 48 hours ago. She saw her primary care provider today who told her to come to the emergency department and get a CT of her head. She denies hitting her head or headache currently. She does states that she is having numbness of her hip all the way down her right leg only. PFSH PFSH Home Medications [] 1 cap PO .daily 09/22/18 [History Last Taken 09/25/18] ferrous sulfate 325 mg (65 mg iron) tablet,delayed release 325 mg PO QDAY anemia 09/22/18 [History Last Taken 09/25/18] naproxen 500 mg tablet 500 mg PO BID PRN PRN Pain #60 tabs 09/28/18 [Rx Last Taken Unknown] ibuprofen 800 mg tablet 800 mg PO Q8H PRN pain #20 tabs 08/30/23 [Rx Last Taken Unknown] Allergy/AdvReac Type Severity Reaction Status Date / Time No Known Allergies Allergy Verified 09/26/18 07:40 Surgical History S/P S/P cholecystectomy Social History Smoking Status: Never smoker alcohol intake: never substance use type: does not use caffeine: Yes what type of physical activity do you participate in: walking frequency: 5-6 times per week seatbelt use: always do you feel safe at home: Yes additional social history: () Patient is not working ROS ROS ED ROS Narrative Constitutional: No fever, no chills. HEENT: No sore throat. No neck pain. No loss of vision. No rhinorrhea. Cardiovascular: No chest pain. No palpitations. No pedal edema. Respiratory: No cough, no shortness of breath. Abdominal: No abdominal pain. No nausea. No vomiting. Genitourinary: No dysuria. No hematuria. Musculoskeletal: No myalgias. No arthralgias. Right lower extremity paresthesias. Neurologic: No headaches. No dizziness. No lightheadedness. Paresthesias of right leg. Skin: No rash. No change in color. Psychiatric: No depression. No anxiety. EXAM Physical Exam Narrative Exam Narrative: Afebrile. Vital signs noted. HEENT: Normocephalic. Atraumatic. PERRL, EOMI. Neck soft and supple. No point tenderness or step off. Cardiovascular: Regular rate and rhythm. No murmurs, rubs, or gallops appreciated. Respiratory: No tachypnea. Lungs clear to auscultation bilaterally. Gastrointestinal: Abdomen soft, nontender, with normoactive bowel sounds. No rebound or guarding. Neurological: Awake. Alert. Nonfocal, nonlateralizing. NIH stroke scale is 0. She may score a 1 for subjective paresthesia of right leg. Skin: No rash. Normal color. No pallor. Musculoskeletal: No pedal edema. Full range of motion extremities. Psychiatric: Flat affect Const Vital Signs: 09/08/23 16:50 Temperature 96.8 F L Temperature Source Temporal Pulse Rate 74 Respiratory Rate 16 Blood Pressure 152/102 H Blood Pressure Mean 118 Pulse Ox 100 Oxygen Delivery Method Room Air MDM MDM MDM Narrative Medical decision making narrative: In the differential diagnosis would be stroke versus peripheral neuropathy versus lumbar radiculopathy versus generalized paresthesia. Lower on the differential diagnosis would be conversion disorder. Comprehensive workup was pursued. CT of the brain was obtained and there is no evidence of an acute process, no hemorrhage, no stroke. This was in review of the radiology report. I reviewed her laboratory work and she has normal white count of 6.8, hemoglobin normal at 12.3, platelet count normal at 259. Sodium is normal at 138 with potassium normal 4.0. Glucose normal at 97. LFTs are grossly unremarkable. Serum is negative. Magnesium is normal at 2.1. I do not see an electrolyte disturbance causing her subjective paresthesias. Of note, she has full range of motion of her right lower leg as well. I did obtain x-rays of the hip and pelvis to help rule out fracture versus hip contusion from her fall last week. On my interpretation of her hip and pelvis x-ray there is no evidence of fracture. I reviewed the radiology report which confirms my independent interpretation. Additionally, x-rays of the back show no evidence of acute fracture on my independent interpretation. I reviewed the radiology report which comments on spondylolisthesis at L5-S1. She may be having more sciatic or radicular problems with her subjective paresthesias. At this point in time, I do not feel that it is central process such as a stroke which requires admission at this time. I feel she can be discharged to follow-up with her primary care provider for further workup. Return instructions to the emergency department were reviewed. Disposition is discharged home in stable condition. History & Record Review Discussion w/independent historian: Patient Additional record(s) reviewed:: Prior ED visit Lab Data Attestation: I reviewed the patient's lab results. Labs: Laboratory Results - last 24 hr 09/08/23 09/08/23 19:05 19:14 WBC 6.8 RBC 4.47 Hgb 12.3 Hct 38.6 MCV 86.4 MCH 27.5 MCHC 31.9 L RDW Std Deviation 40.5 RDW Coeff of Emile 13.0 Plt Count 259 MPV 9.6 Immature Gran % (Auto) 0.300 Neut % (Auto) 60.4 Lymph % (Auto) 30.7 Hendricks % (Auto) 6.5 Eos % (Auto) 1.2 Baso % (Auto) 0.9 Absolute Neuts (auto) 4.1 Absolute Lymphs (auto) 2.08 Nucleated RBC % 0 Sodium 138 Potassium 4.0 Chloride 106 Carbon Dioxide 30.0 Anion Gap 2 L BUN 8 Creatinine 0.66 Estim Creat Clear Calc 109.25 Est GFR (MDRD) Af Amer 129 Est GFR (MDRD) Non-Af 107 BUN/Creatinine Ratio 12.1 Glucose 97 Calcium 9.3 Magnesium 2.1 Total Bilirubin 0.40 AST 15 ALT 20 Alkaline Phosphatase 82 Total Protein 7.8 Albumin 3.5 Globulin 4.3 H Albumin/Globulin Ratio 0.8 L Serum , Qual NEGATIVE Urine Color Yellow Urine Clarity Clear Urine pH 7.0 Ur Specific Rotan 1.015 Urine Protein Negative Urine Glucose (UA) Normal Urine Ketones Negative Urine Occult Blood Negative Urine Nitrite Negative Urine Bilirubin Negative Urine Urobilinogen Normal Ur Leukocyte Esterase Negative Urine RBC 0 SEEN Urine WBC 0 SEEN Ur Squamous Epith Cells 0-5 SEEN Urine Bacteria 0 SEEN Urine Mucus 0 SEEN Radiography Diagnostic Testing: Clinical Impression(s) from Imaging Studies Brain CT 09/08/23 18:43 IMPRESSION: Normal unenhanced CT scan of the brain. Electronically Signed: Alejandro Brasher MD at 19:41 EST , Lumbar Spine X-Ray 09/08/23 18:45 IMPRESSION: Spondylolisthesis with spondylolysis at L5-S1. Electronically Signed: Alejandro Brasher MD at 19:54 EST , Hip/Pelvis X-Ray 09/08/23 19:22 IMPRESSION: Normal x-ray examination of the pelvis and hip. Electronically Signed: Alejandro Brasher MD at 19:50 EST Reading Location ID and State: [facility] / [place] , Service support , Discharge Plan Triage Chief Complaint: Numb/Ting ED Provider: Tyree Fuentes Dx/Rx/DC Orders Clinical Impression: Lumbar radiculopathy, Paresthesia of right lower extremity Instructions: ED Sciatica, ED Paraesthesias Prescriptions: No Action ferrous sulfate 325 MG tablet,delayed release (DR/EC) 325 mg PO QDAY [id number] fum 28 mg iron-folate no.6 1 mg-dha 300 mg capsule 28 mg iron-1 mg -300 mg capsule 1 cap PO .daily naproxen 500 MG tablet 500 mg PO BID PRN PRN (Reason: Pain) Qty: 60 1RF ibuprofen 800 mg tablet 800 mg PO Q8H PRN (Reason: pain) Qty: 20 0RF Stand Alone Forms: ED Work / School Excuse Primary Care Provider: Ana Dominguez Referrals: Ana Dominguez PA [Primary Care Provider] - 1-2 Days if not improving Disposition Disposition: Home, Self Care
== END 2023-09-08 20:35 | disposition home or self-care (01) ==
PROVIDERS: Emergency Provider Emergency Medicine; Visit Provider Emergency Medicine
DX: M54.16 Radiculopathy, lumbar region (principal); R20.2 Paresthesia of skin; W19.XXXA Unspecified fall, initial encounter; Z90.49 Acquired absence of other specified parts of digestive tract
CPT/HCPCS: 70450; 72100; 73502; 80053; 81001; 83735; 84703; 85025; 99284; A4216